=== PATIENT | female | born 1990 | race Two or more races ===

== ENCOUNTER 2024-05-14 07:09 | Inpatient (IN) | payer MEDICAID, OTHER ==
[~2024-05-14] VITALS: Ht 167.6 cm; Wt 70.6 kg
--- NOTE | 2024-05-14 07:41 | ED.PDOC ---
General HPI Comments 33-year-old female presents with a chief complaint of abdominal pain and hematuria x 2 days. Patient states that her abdominal pain is localized to her suprapubic region, radiating into her flanks, and describes as cramping. Patient mentions that she went to urgent care yesterday and they told her she had blood in her urine, and gave her Keflex to take. Patient denies and states that she has an IUD. No other symptoms or modifying factors present at this time. 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 Family History Family History: Reviewed,noncontributory to illness Social History Smoker: Non-Smoker Alcohol: Denies ETOH Use Drugs: Denies Drug Use Lives In: Home Constitutional: denies: chills, diaphoresis, fatigue, fever, malaise, sweats, weakness, others EENTM: denies: blurred vision, double vision, ear bleeding, ear discharge, ear drainage, ear pain, ear ringing, eye pain, eye redness, hearing loss, mouth pain, mouth swelling, nasal discharge, nose bleeding, nose congestion, nose pain, photophobia, tearing, throat pain, throat swelling, voice changes, others Respiratory: denies: cough, hemoptysis, orthopnea, SOB at rest, shortness of breath, SOB with excertion, stridor, wheezing, others Cardiovascular: denies: chest pain, dizzy spells, diaphoresis, Dyspnea on exertion, edema, irregular heart beat, left arm pain, lightheadedness, palpitations, PND, syncope, others Gastrointestinal: reports: abdominal pain; denies: abdomen distended, blood streaked bowels, constipated, diarrhea, dysphagia, difficulty swallowing, hematemesis, melena, nausea, poor appetite, poor fluid intake, rectal bleeding, rectal pain, vomiting, others Genitourinary: reports: hematuria; denies: abnormal vagina bleeding, burning, dyspareunia, dysuria, flank pain, frequency, incontinence, pain, , vagina discharge, urgency, others Neurological: denies: dizziness, fainting, headache, left sided numbness, left sided weakness, numbness, paresthesia, pre-existing deficit, right sided numbness, right sided weakness, seizure, speech problems, tingling, tremors, weakness, others Musculoskeletal: denies: back pain, gout, joint pain, joint swelling, muscle pain, muscle stiffness, neck pain, others Integumetry: denies: bruises, change in color, change in hair/nails, dryness, laceration, lesions, lumps, rash, wounds, others Allergic/Immunocompromised: denies: Difficulty Healing, Frequent Infections, Hives, Itching, others Hematologic/Lymphatic: denies: anemia, blood clots, easy bleeding, easy bruising, swollen glands, others Endocrine: denies: excessive hunger, excessive sweating, excessive thirst, excessive urination, flushing, intolerance to cold, intolerance to heat, unexplained weight gain, unexplained weight loss, others Psychiatric: denies: anxiety, bipolar disorder, depression, hopeless, panic disorder, schizophrenia, sleepless, suicidal, others All Other Systems: Reviewed and Negative Physical Exam General Appearance: Moderate Distress, Normal HEENT: Normal ENT Inspection, Pharynx Normal, TMs Normal Neck: Full Range of Motion, Non-Tender, Normal, Normal Inspection Respiratory: Chest Non-Tender, Lungs Clear, No Accessory Muscle Use, No Respiratory Distress, Normal Breath Sounds Cardiovascular: No Edema, No JVD, No Murmur, No Gallop, Normal Peripheral Pulses, Regular Rate/Rhythm Breast Exam: Deferred Gastrointestinal: No Organomegaly, Non Tender, No Pulsatile Mass, Normal Bowel Sounds, Soft Genitalia: Deferred Pelvic: Deferred Rectal: Deferred Extremities: No calf tenderness, Normal capillary refill, Normal inspection, Normal range of motion, Non-tender, No pedal edema Musculoskeletal : Apperance: Normal Neurologic: Alert, 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 Was a procedure done?: No Differential Diagnosis Kidney stone (Female): Musculoskeletal pain, Urinary obstruction, Urolithiasis X-Ray, Labs, Meds, VS Vital Signs Date Time Temp Pulse Resp B/P (MAP) Pulse Ox O2 Delivery O2 Flow Rate FiO2 05/14/24 07:27 98.0 90 16 112/77 (89) 98 Patient alert. Came in for abdominal pain. Was seen at urgent care yesterday for the same symptom. Vitals stable. Answering all questions. Reviewed her medication. Currently on Keflex. States that she is in excruciating pain. Abdomen is soft. For better patient care she will be admitted. Establish intravenous access. Was given pain medication. Was given Zofran. Explained to the patient. Time of 1ST Reevaluation: 08:02 Reevaluation 1ST: Unchanged Patient Education/Counseling: Diagnosis, Treatment, Prognosis Family Education/Counseling: No Family Present Departure 1 Departure Time of Disposition: 07:43 Impression: Primary Impression: Acute abdominal pain Disposition: 09 ADMITTED INPATIENT Admit to: Med Surg Condition: Guarded Critical Care Note Critical Care Time?: No Stability Stability form required: No Heart Score Heart Score: Heart Score Response (Comments) Value History N/A 0 EKG N/A 0 Age N/A 0 Risk Factors N/A 0 Troponin N/A 0 Total 0 I personally scribed for JAYMIE SOUTH MD ([email or web address]) on 05/14/24 at 07:41. Electronically submitted by Po Noble ([email or web address]). JAYMIE SOUTH MD May 14, 2024 07:41
[2024-05-14 08:19] LABS: Basophils # (auto) 0 10 ^3/uL (0-0.2); Basophils % (auto) 0.1 % (0.0-2.0); Eosinophils # (auto) 0.1 10 ^3/uL (0-0.8); Eosinophils % (auto) 0.8 % (0.0-7.0); Hematocrit 42.3 % (36.0-46.0); Lymphocytes # (auto) 1.9 10 ^3/uL (0.4-5.4); Lymphocytes % (auto) 11.5 % (10.0-50.0); Mean Corpuscular Hemoglobin 31.8 pg (28.0-32.0); Mean Corpuscular Hgb Conc. 33.1 g/dL (32.0-36.0); Monocytes # (auto) 1.2 10 ^3/uL (0-1.3); Monocytes % (auto) 7.7 % (0.0-12.0); Neutrophils % (auto) 79.9 % (37.0-80.0); Nucleated Red Blood Cells % 0.1 %; Platelet Count (auto) 336 10^3/uL (140-450); Red Blood Cells 4.41 10^6/uL (4.0-5.20); White Blood Cell 16.2 10^3/uL (4.4-10.8)
[2024-05-14 08:25] LABS: Chloride 106 mmol/L (98-107); Potassium 3.8 mmol/L (3.5-5.1); Sodium 141 mmol/L (136-145)
[2024-05-14 08:26] LABS: Anion Gap 5 (5-15); Carbon Dioxide 30 mmol/L (20-31)
[2024-05-14 08:27] LABS: Calcium 9.9 mg/dL (8.7-10.4)
[2024-05-14 08:31] LABS: BUN/Creatinine Ratio 10.3 (10.0-20.0); Blood Urea Nitrogen 7 mg/dL (9-23); Glucose 91 mg/dL (74-106)
[2024-05-14 08:38] VITALS: PULSE 78; RESP 18; O2SAT 96
[2024-05-14 09:05] LABS: Urine Bacteria None Seen /hpf (None Seen); Urine Blood 1+ /uL (Negative); Urine Budding Yeast OCCASIONAL /hpf (None Seen); Urine Clarity Clear (Clear); Urine Color Yellow (Yellow); Urine Mucus MODERATE (None Seen); Urine Protein, UAD TRACE (Negative); Urine Urobilinogen Normal (Negative); Urine WBC 1 /hpf (0 - 5); Urine pH 5.5 (5.0-9.0)
[2024-05-14] MEDS ORDERED: NITROGLYCERIN 0.4 MG SL TAB SL PRN (10:15)
[2024-05-14] MEDS: PANTOPRAZOLE 40 MG/10 ML VIAL INJ IV ONE (10:15)
[2024-05-14] MEDS ORDERED: DOCUSATE SOD 100 MG CAP PO PRN (10:15)
[2024-05-14] MEDS ORDERED: MORPHINE SULFATE INJ 2 MG/ml SYRG IV PRN (10:15)
--- NOTE | 2024-05-14 10:16 | DVHHP2 ---
History of Present Illness Reason for Visit: Acute abdominal pain History of Present Illness Patient is a 33-year-old female with past medical history of ovarian cysts who presented to [facility] ED with complaint of acute abdominal pain for a proximally 2 days duration. Patient reports symptoms progressively get worse with hematuria, radiating pain to flank, described as cramping localized to her suprapubic region, getting worse today that prompted this visit. Patient was seen and evaluated in the ED, laboratory data shows elevated WBC 16.2, platelets 336, sodium 141, potassium three eight, BUN seven, creatinine 0.68, glucose 91. Abdomen/pelvis CT results pending. Patient was started on IV antibiotic regimen Rocephin, please see medication orders section in the computer. On my assessment, patient denied chest pain, no headache, no dizziness, no shortness of breath, no abdominal pain at this moment, no , no diarrhea, no nausea, no vomiting, no fever, no chills. Patient was admitted for further evaluation and medical management. Past Medical History Ovarian Cysts Past Surgical History Denies all surgeries Family History Reviewed, noncontributory to the management of this case. Past Social History The patient lives at home, denies smoking, alcohol or illicit drugs abuse. Review of Systems Constitutional: No: Fever, Chills, Sweats, Weakness, Malaise, Other Eyes: No: Pain, Vision change, Conjunctivae inflammation, Eyelid inflammation, Other, Redness ENT: No: Ear pain, Ear discharge, Nose pain, Nose discharge, Nose congestion, Mouth pain, Mouth swelling, Throat pain, Throat swelling, Other Respiratory: No: Cough, Dry, Shortness of breath, SOB with excertion, Wheezing, Hemoptysis, Pleuritic Pain, Sputum, Wheezing, Other Cardiovascular: No: Chest Pain, Palpitations, Orthopnea, Paroxysmal Noc. Dyspnea, Edema, Lt Headedness, Other Gastrointestinal: Abdominal Pain; No: Nausea, Vomiting, Diarrhea, Constipation, Melena, Hematochezia, Other Genitourinary: No Dysuria, No Frequency, No Incontinence; Hematuria; No Retention, No Other Musculoskeletal: No: other, neck pain, shoulder pain, arm pain, back pain, hand pain, leg pain, foot pain Skin: No: Rash, Lesions, Jaundice, Bruising, Other Neurological: No: Weakness, Numbness, Incoordination, Change in speech, Confusion, Seizures, Other Allergies: Coded Allergies: NO KNOWN ALLERGIES (Unverified , 05/14/24) Exam Vital Signs Vital Signs Date Time Temp Pulse Resp B/P (MAP) Pulse Ox O2 Delivery O2 Flow Rate FiO2 05/14/24 08:38 98.0 78 18 138/96 (110) 96 98.0 05/14/24 08:38 Room Air* 0 21 General Appearance: Alert, Oriented X3, Cooperative, No acute distress HEENT: Atraumatic, PERRLA, EOMI, Mucous membr. moist/pink Respiratory: Clear to auscultation, Normal air movement Cardiovascular: Regular rate, Normal S1, Normal S2, No murmurs Abdominal: Normal bowel sounds, Soft, No hepatospenomegaly, No masses, Other (Reports tenderness) Extremities: No clubbing, No cyanosis, No edema, Normal pulses, No tenderness/swelling Skin: No rashes, No breakdown, No significant lesion Neuro: Normal gait, Normal speech, Strength at 5/5 X4 ext, Normal tone, Sensation intact, Cranial nerves 3-12 NL, Reflexes 2+ Psych/Mental Status: Mental status NL, Mood NL Labs/Xrays Labs Test 05/14/24 10:01 05/14/24 07:52 Range/Units Urine Color Yellow Yellow Urine Clarity Clear Clear Urine pH 5.5 5.0-9.0 Urine Specific [place] 1.030 1.001-1.035 Urine Protein Trace H Negative Urine Ketones Negative Negative Urine Blood 1+ H Negative /uL Urine Nitrite Negative Negative Urine Bilirubin Negative Negative Urine Urobilinogen Normal Negative mg/dL Urine Leukocyte Esterase Negative Negative /uL Urine RBC 3 0 - 4 /hpf Urine WBC 1 0 - 5 /hpf Urine Squamous Epithelial Cells Few <5 /hpf Urine Bacteria None seen None Seen /hpf Urine Mucus Moderate None Seen Urine Yeast (Budding) Occasional None Seen /hpf Urine Glucose Normal Normal mg/dL White Blood Count 16.2 H 4.4-10.8 10^3/uL Red Blood Count 4.41 4.0-5.20 10^6/uL Hemoglobin 14.0 12.2-16.2 g/dL Hematocrit 42.3 36.0-46.0 % Mean Corpuscular Volume 96.0 80.0-100.0 fL Mean Corpuscular Hemoglobin 31.8 28.0-32.0 pg Mean Corpuscular Hemoglobin Concent 33.1 32.0-36.0 g/dL Red Cell Distribution Width 13.0 11.8-14.3 % Platelet Count 336 140-450 10^3/uL Mean Platelet Volume 7.5 6.9-10.8 fL Neutrophils (%) (Auto) 79.9 37.0-80.0 % Lymphocytes (%) (Auto) 11.5 10.0-50.0 % Monocytes (%) (Auto) 7.7 0.0-12.0 % Eosinophils (%) (Auto) 0.8 0.0-7.0 % Basophils (%) (Auto) 0.1 0.0-2.0 % Neutrophils # (Auto) 13.0 H 1.6-8.6 10 ^3/uL Lymphocytes # (Auto) 1.9 0.4-5.4 10 ^3/uL Monocytes # (Auto) 1.2 0-1.3 10 ^3/uL Eosinophils # (Auto) 0.1 0-0.8 10 ^3/uL Basophils # (Auto) 0 0-0.2 10 ^3/uL Nucleated Red Blood Cells 0.1 % Sodium Level 141 136-145 mmol/L Potassium Level 3.8 3.5-5.1 mmol/L Chloride Level 106 98-107 mmol/L Carbon Dioxide Level 30 20-31 mmol/L Anion Gap 5 5-15 Blood Urea Nitrogen 7 L 9-23 mg/dL Creatinine 0.68 0.550-1.02 mg/dL Glomerular Filtration Rate Calc 119 >90 mL/min BUN/Creatinine Ratio 10.3 10.0-20.0 Serum Glucose 91 74-106 mg/dL Calcium Level 9.9 8.7-10.4 mg/dL Abdomen/pelvis CT results pending Assessment/Plan Assessment/Plan Acute abdominal pain Hematuria Leukocytosis, unspecified Plan 1. Admit to med surge unit 2. Breathing treatment 3. Pain control management 4. IV antibiotic management 5. Management of fluids and electrolytes 6. Consultation for hospitalist 7. Diagnostic test abdomen/pelvis CT 8. DVT prophylaxis-on SCDs 9. Repeat labs CBC, CMP in a.m. 10. Continue with current medical management 11. Treatment plan discussed with patient and RN. Patient verbalized understanding. Plan discussed with: Patient, Other (RN) My Orders Orders - CLAUDETTE CARMICHAEL DNP Procedure Category Date Status Time Ceftriaxone Ivpb PHA 05/15/24 Verified Rocephin 09:00 Ceftriaxone Ivpb PHA 05/14/24 Verified Rocephin 10:15 Pantoprazole PHA 05/15/24 Verified (Protonix) 10:00 Pantoprazole PHA 05/14/24 Verified (Protonix) 10:15 Admit ADMIT 05/14/24 Verified 10:13 Allergies CORAL 05/14/24 Verified 10:13 Code Status CODE 05/14/24 Verified 10:13 Sodium Chloride Lock PHA 05/14/24 Verified (Saline Lock Ns) 14:00 Oxygen Per Hour RT 05/14/24 Verified 10:13 Hydrocodone-Acet PHA 05/14/24 Verified 5/325mg Tab (Josephine 10:15 Ondansetron Hcl PHA 05/14/24 Verified (Zofran) 10:15 Docusate Sodium PHA 05/14/24 Verified Capsule (Colace 10:15 Problem List: (1) Acute abdominal pain (2) Hematuria (3) Leukocytosis, unspecified Date of Service: May 14, 2024 Billing Provider: CLAUDETTE CARMICHAEL DNP Common Visit Codes: [id number] INP/OBS CARE (HIGH) CLAUDETTE CARMICHAEL DNP May 14, 2024 10:16
[2024-05-14] MEDS: SODIUM CHLOR 0.9% PF (SALINE LOCK) 10ML VIAL/SYR IV SCH (11:20)
[2024-05-14] MEDS: cefTRIAXone 1GM/50ML D5W 50 ML IV ONE (11:37)
--- NOTE | 2024-05-14 11:49 | DVH ---
CT ABDOMEN AND PELVIS WITHOUT CONTRAST CLINICAL HISTORY: stone TECHNIQUE: Multidetector CT of the abdomen was performed from lung bases to pubic symphysis. Imaging was performed without IV contrast. Axial, coronal and sagittal multiplanar reformats were obtained fr om the axial data set by the technologist. Radiation optimization: All CT scans at this facility use at least one of these dose optimization rosalinda hniques: automated exposure control mA and/or kV adjustment per patient size (includes targeted exam s where dose is matched to clinical indication) or iterative reconstruction. Radiation Dose Information: CT Dose: CTDI volume is 8 mGy. Dose-length product is 426 mGy*cm Comparison: None FINDINGS: [Findings] Evaluation of the abdominal viscera is limited without intravenous contrast. The liver, gallbladder, pancreas, kidneys, adrenal glands, and spleen appear within normal limits. There is no gross evidence of abdominal lymphadenopathy. There is no free fluid or free air. The stomach grossly appears unremarkable. The small and large bowel loops demonstrate normal caliber and appear within normal limits. The abdominal aorta and IVC appear within normal limits. There is an IUD within the uterus. There is a 3.1 x 4.1 cm cystic structure in the right adnexa likel y an ovarian cyst. The bladder is poorly filled limiting evaluation. There is no free fluid collectio n in the pelvis. Lung bases are clear. There is no acute osseous abnormality. IMPRESSION: 1. There is no acute process in the abdomen and pelvis.. 2. 3.1 x 4.1 cm cystic structure in the right adnexa likely an ovarian cyst. Further evaluation with dedicated pelvic ultrasound is recommended. 3. IUD within the uterus. HS:Y
[2024-05-14] MEDS: MORPHINE SULFATE INJ 2 MG/ml SYRG IV PRN (12:16)
[2024-05-14 17:12] VITALS: BP 100/54; PULSE 74; RESP 16; TEMP 98; O2SAT 98
[2024-05-14 18:22] VITALS: BP 104/44; PULSE 62; RESP 16; TEMP 98.1; O2SAT 97
[2024-05-14] MEDS: HYDROcodone-ACET 5/325MG TAB PO PRN (18:51)
[2024-05-14] MEDS ORDERED: ZOFR4T PO (19:20)
[2024-05-14] MEDS ORDERED: CEPH500C PO (19:20)
[2024-05-14 20:00] VITALS: PULSE 59; RESP 17; O2SAT 97
[2024-05-14] MEDS: ONDANSETRON HCL 4 MG/2 ML VIAL IV PRN (21:00)
[2024-05-14 22:00] VITALS: BP 100/56; PULSE 59; RESP 17; TEMP 97.8; O2SAT 97
[2024-05-15] VITALS (9 sets, daily range): BP systolic 100–119; BP diastolic 49–68; PULSE 54–72; RESP 16–17; TEMP 97.4–98.6; O2SAT 95–100
[2024-05-15] MEDS: ACETAMINOPHEN 325 MG TAB PO PRN (06:11)
[2024-05-15] MEDS: PANTOPRAZOLE 40 MG/10 ML VIAL INJ IV SCH (09:58)
[2024-05-15] MEDS: cefTRIAXone 1GM/50ML D5W 50 ML IV SCH (10:06)
[2024-05-15 10:37] LABS: Basophils # (auto) 0 10 ^3/uL (0-0.2); Basophils % (auto) 0.5 % (0.0-2.0); Eosinophils # (auto) 0.1 10 ^3/uL (0-0.8); Eosinophils % (auto) 1.6 % (0.0-7.0); Hematocrit 40.2 % (36.0-46.0); Hemoglobin 13.5 g/dL (12.2-16.2); Lymphocytes # (auto) 2.1 10 ^3/uL (0.4-5.4); Lymphocytes % (auto) 24.4 % (10.0-50.0); Mean Corpuscular Hgb Conc. 33.5 g/dL (32.0-36.0); Mean Corpuscular Volume 95.5 fL (80.0-100.0); Monocytes # (auto) 0.7 10 ^3/uL (0-1.3); Monocytes % (auto) 8.3 % (0.0-12.0); Neutrophils # (auto) 5.6 10 ^3/uL (1.6-8.6); Neutrophils % (auto) 65.2 % (37.0-80.0); Platelet Count (auto) 321 10^3/uL (140-450); Red Blood Cells 4.21 10^6/uL (4.0-5.20); Red Cell Distribution Width 12.9 % (11.8-14.3); White Blood Cell 8.5 10^3/uL (4.4-10.8)
[2024-05-15 10:53] LABS: Alanine Aminotransferase 32 U/L (7-40); Albumin 4.4 g/dL (3.2-4.8); Alkaline Phosphatase 95 U/L (46-116); Anion Gap 4 (5-15); Aspartate Aminotransferase 18 U/L (13-40); BUN/Creatinine Ratio 7.1 (10.0-20.0); Blood Urea Nitrogen 5 mg/dL (9-23); Calcium 9.2 mg/dL (8.7-10.4); Carbon Dioxide 28 mmol/L (20-31); Chloride 107 mmol/L (98-107); Glucose 99 mg/dL (74-106); Potassium 3.9 mmol/L (3.5-5.1); Sodium 139 mmol/L (136-145)
[2024-05-15 10:54] LABS: Bilirubin, Total 0.4 mg/dL (0.2-1.0); Total Protein 7.6 g/dL (5.7-8.2)
--- NOTE | 2024-05-15 13:36 | DVHINCON2 ---
Date of service: May 15, 2024 Reason for Consultation Acute Abdominal Pain Right Ovarian Cyst History of Present Illness HPI 33y Ab2 Living children x 3. LMP 04/11/24. Contraception= MIRENA IUD since 2021 Patient admitted with leukocytosis, hematuria, and right flank pain. Denies fever. Pain in abdomen and lower back x 2 days. Denies N/V or diarrhea History of ovarian cysts, s/p laparoscopic ovarian cystectomy x 2 in 2016 and 2020 (pathology unknown, poor historian) Denies any history of endometriosis Has irreg and very light periods due to MIRENA use x 2 years. 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 History of gonorrhea [address] Abd/Pelvis shows no acute process Pelvic US shows right complex, septated 5cm ROV cyst, normal doppler flow to both ovaries. Home Meds Reported Medications Ondansetron Odt 4MG Tab (ZOFRAN PO) 4 Mg Tb, 4 MG PO, TAB ODT TAB-DISSOLVE IN MOUTH, THEN SWALLOW 05/14/24 Cephalexin Monohydrate (Cephalexin) 500 Mg Cap, 500 MG PO Q6HR, MG 05/14/24 Past Medical History Cardiac: No pertinent Hx Pulmonary: No pertinent Hx Central Nervous System: No pertinent Hx GI: No pertinent Hx Hemotology/Oncology: No pertinent Hx Hepatobiliary: No pertinent Hx Psychiatric: No pertinent Hx Musculoskeletal: No pertinent Hx Rheumotologic: No pertinent Hx Infectious Disease: No peritnent Hx ENT: No pertinent Hx Renal/: No pertinent Hx Endocrine: No pertinent Hx Dermatology: No pertinent Hx Past Surgical History: Other (Laparoscopy) Patient Family History: Diabetes mellitus G8 MOTHER, Onset:Unknown G8 FATHER, Onset:Unknown FHx: heart failure G8 MOTHER, Onset:Unknown Smoker: No Hx (Negative) Alocohol: None Drugs: None Lives with: With family Review of Systems Constitutional: No symptom reported Ears, Nose, & Throat: No symptom reported Eyes: No symptom reported Pulmonary/Respiratory: No symptom reported Cardiovascular: No symptom reported Gastrointestinal: Abdominal Pain Genitourinary: Hematuria Musculoskeletal: No symptom reported Skin: No symptom reported Psychiatric: No symptom reported Endocrine: No symptom reported Hemotologic/Lymphatic: No symptom reported H&P Exam Vital Signs Vital Signs Date Time Temp Pulse Resp B/P (MAP) Pulse Ox O2 Delivery O2 Flow Rate FiO2 05/15/24 13:15 98.1 57 17 105/58 (74) 100 98.1 05/15/24 08:20 Room Air* 0 21 General Appeara: Well developed, Well nourished, Normal Appearance, Other (NO distress) Head Exam: Normal inspection Neck Exam: Normal inspection Eye Exam: bilateral eye PERRL Nasal Exam: Normal inspection Mouth: Normal Inspection Pulmonary/Respiratory: Normal inspection, Normal breath sounds, Lungs clear Cardiovascular/Chest: Normal inspection Abdominal Exam: Normal bowel sounds, Soft, No tenderness, No hepatospenomegaly, No masses Rectal Exam: Deferred Pelvic Exam: Not done Eye contact/ Speech: Cooperative, Good eye contact Thoughts/Psych: Normal thought pattern Labs/Xrays PATIENT: HATTIE BALEST: [id number] UNIT: [id number] : 1990 LOC: [facility] ROOM / BED: [address] [place] [address] AGE / SEX: 33 / F ADM STATUS: ADM IN SERVICE 1307 ORDERING PHYSICIAN: MANOJ KEYS DO PROCEDURE(s): PELUS - PELVIC REASON: abd pain ORDER NUMBER(s): [id number], ACCESSION NUMBER(s): [id number] INDICATION: Pain TECHNIQUE: Multiple real-time grayscale transabdominal and transvaginal sonographic images along with color and duplex Doppler of the uterus and ovaries were obtained. COMPARISON: None FINDINGS: The uterus measures 7.9 x 4.3 x 3.7 cm. The endometrial stripe measures 0.3 cm. Intrauterine device is visualized in the endometrium. The right ovary measures 5.2 x 4.9 x 3.5 cm. There is a right ovarian hemorrhagic cyst measuring 4.9 cm. The left ovary measures 2.5 x 1.8 x 1.7 cm. Subsequent color and duplex Doppler interrogation of the ovaries demonstrated symmetric vascular flow to both ovaries, though this does not exclude the possibility of torsion due to the dual blood supply. IMPRESSION: Right ovarian hemorrhagic cyst measuring 4.9 cm. Recommend follow-up pelvic ultrasound in 6 weeks. Labs Test 05/15/24 10:05 05/14/24 10:01 Range/Units White Blood Count 8.5 # 4.4-10.8 10^3/uL Red Blood Count 4.21 4.0-5.20 10^6/uL Hemoglobin 13.5 12.2-16.2 g/dL Hematocrit 40.2 36.0-46.0 % Mean Corpuscular Volume 95.5 80.0-100.0 fL Mean Corpuscular Hemoglobin 32.0 28.0-32.0 pg Mean Corpuscular Hemoglobin Concent 33.5 32.0-36.0 g/dL Red Cell Distribution Width 12.9 11.8-14.3 % Platelet Count 321 140-450 10^3/uL Mean Platelet Volume 7.3 6.9-10.8 fL Neutrophils (%) (Auto) 65.2 37.0-80.0 % Lymphocytes (%) (Auto) 24.4 10.0-50.0 % Monocytes (%) (Auto) 8.3 0.0-12.0 % Eosinophils (%) (Auto) 1.6 0.0-7.0 % Basophils (%) (Auto) 0.5 0.0-2.0 % Neutrophils # (Auto) 5.6 1.6-8.6 10 ^3/uL Lymphocytes # (Auto) 2.1 0.4-5.4 10 ^3/uL Monocytes # (Auto) 0.7 0-1.3 10 ^3/uL Eosinophils # (Auto) 0.1 0-0.8 10 ^3/uL Basophils # (Auto) 0 0-0.2 10 ^3/uL Nucleated Red Blood Cells 0.0 % Sodium Level 139 136-145 mmol/L Potassium Level 3.9 3.5-5.1 mmol/L Chloride Level 107 98-107 mmol/L Carbon Dioxide Level 28 20-31 mmol/L Anion Gap 4 L 5-15 Blood Urea Nitrogen 5 L 9-23 mg/dL Creatinine 0.70 0.550-1.02 mg/dL Glomerular Filtration Rate Calc 118 >90 mL/min BUN/Creatinine Ratio 7.1 L 10.0-20.0 Serum Glucose 99 74-106 mg/dL Calcium Level 9.2 8.7-10.4 mg/dL Total Bilirubin 0.4 0.2-1.0 mg/dL Aspartate Amino Transferase (AST) 18 13-40 U/L Alanine Aminotransferase (ALT) 32 7-40 U/L Alkaline Phosphatase 95 46-116 U/L Total Protein 7.6 5.7-8.2 g/dL Albumin 4.4 3.2-4.8 g/dL Urine Color Yellow Yellow Urine Clarity Clear Clear Urine pH 5.5 5.0-9.0 Urine Specific [place] 1.030 1.001-1.035 Urine Protein Trace H Negative Urine Ketones Negative Negative Urine Blood 1+ H Negative /uL Urine Nitrite Negative Negative Urine Bilirubin Negative Negative Urine Urobilinogen Normal Negative mg/dL Urine Leukocyte Esterase Negative Negative /uL Urine RBC 3 0 - 4 /hpf Urine WBC 1 0 - 5 /hpf Urine Squamous Epithelial Cells Few <5 /hpf Urine Bacteria None seen None Seen /hpf Urine Mucus Moderate None Seen Urine Yeast (Budding) Occasional None Seen /hpf Urine Glucose Normal Normal mg/dL Microbiology Date/Time Source Procedure Growth Status 05/14/24 12:18 Blood Blood Culture - Preliminary NO GROWTH AFTER 24 HOURS OF INCUBATION. Resulted Assessment/Plan Admitting Diagnosis: Acute abdominal pain, etiology to be determined Right ovarian complex cyst, 5cm (likely hemorrhagic cyst, stable) Presence of IUD (Mirena) Hx of Abnormal PAP and HPV+ Plan Patient has a benign, non acute abdomen. No evidence of ovarian torsion or rupture NO intervention for surgery indicated at this time for a functional, hemorrhagic ovarian cyst (benign) Would recommend outpatient [employer] follow up for pelvic exam and repeat Pelvic US in 4-6 weeks Reconsult if necessary or if pain control inadequate, would consider laparoscopy with cystectomy and/or oophorectomy if not improving with conservative measures. [employer] WILL SIGN off Plan discussed with: Patient Date of Service: May 15, 2024 Billing Provider: MANOJ KEYS DO Common Visit Codes: CONSULT ONLY Consultation Codes: [id number] CONSULT <60MIN MANOJ KEYS DO May 15, 2024 13:36
--- NOTE | 2024-05-15 14:10 | DVH ---
INDICATION: Pain TECHNIQUE: Multiple real-time grayscale transabdominal and transvaginal sonographic images along with color and duplex Doppler of the uterus and ovaries were obtained. COMPARISON: None FINDINGS: The uterus measures 7.9 x 4.3 x 3.7 cm. The endometrial stripe measures 0.3 cm. Intrauterin e device is visualized in the endometrium. The right ovary measures 5.2 x 4.9 x 3.5 cm. There is a right ovarian hemorrhagic cyst measuring 4.9 cm. The left ovary measures 2.5 x 1.8 x 1.7 cm. Subsequent color and duplex Doppler interrogation of the ovaries demonstrated symmetric vascular flow to both ovaries, though this does not exclude the possibility of torsion due to the dual blood suppl y. IMPRESSION: Right ovarian hemorrhagic cyst measuring 4.9 cm. Recommend follow-up pelvic ultrasound in 6 weeks.
[2024-05-15] MEDS: ACETAMINOPHEN 325 MG TAB PO SCH (14:14)
[2024-05-15] MEDS: IBUPROFEN 400 MG TAB PO SCH (14:14)
[2024-05-15 14:58] LABS: Urine Bacteria None Seen /hpf (None Seen)
[2024-05-15 15:08] LABS: Urine Blood Negative /uL (Negative); Urine Clarity Clear (Clear); Urine Color Light-Yellow (Yellow); Urine Protein, UAD Negative (Negative); Urine Specific Gravity 1.012 (1.001-1.035); Urine Urobilinogen Normal (Negative); Urine WBC <1 /hpf (0 - 5)
--- NOTE | 2024-05-15 16:08 | DVHPN2 ---
Subjective 33-year-old female with history of ovarian cyst status post laparoscopy presented with odynophagia for the past 3 days. Also complained of abdominal and back pain for the past 2-4 months. Also found to have hematuria. Patient is seen by me today during rounds We will consult electrical tester battery, repeat UA. Patient reported having pain during swallowing, however are able to swallow solid and liquid. Reported this started for the past 4 days with no cough, no phlegm production, and only sore throat and pain on swallowing. Reviewed: H&P Changes from previous H/P or p: No Changes Eyes: No Pain, No Vision change, No Conjunctivae inflammation, No Eyelid inflammation, No Other, No Redness ENT: No Ear pain, No Ear discharge, No Nose pain, No Nose discharge, No Nose congestion, No Mouth pain, No Mouth swelling, No Throat pain, No Throat swelling, No Other Cardiovascular: No Chest Pain, No Palpitations, No Orthopnea, No Paroxysmal Noc. Dyspnea, No Edema, No Lt Headedness, No Other Respiratory: No Cough, No Dry, No Shortness of breath, No SOB with excertion, No Wheezing, No Hemoptysis, No Pleuritic Pain, No Sputum, No Other Gastrointestinal: No Nausea, No Vomiting; Abdominal Pain; No Diarrhea, No Constipation, No Melena, No Hematochezia, No Other Genitourinary: No Dysuria, No Frequency, No Incontinence; Hematuria; No Retention, No Other Musculoskeletal: No other, No neck pain, No shoulder pain, No arm pain, No back pain, No hand pain, No leg pain, No foot pain Skin: No Rash, No Lesions, No Jaundice, No Bruising, No Other Objective Vitals Vital Signs Date Time Temp Pulse Resp B/P (MAP) Pulse Ox O2 Delivery O2 Flow Rate FiO2 05/15/24 13:15 98.1 57 17 105/58 (74) 100 98.1 05/15/24 08:20 Room Air* 0 21 Intake/Output Intake and Output 05/15/24 07:00 Intake Total 325 ml Balance 325 ml Intake Oral 325 ml # Voids 2 Exam Alert, oriented x3 PERRLA No JVD Enlarged tonsil, slight erythema, slightly coated tongue, fair oral hygiene Clear breath sounds bilaterally S1-S2 regular rate and rhythm no murmur Abdomen slight suprapubic tenderness, back pain, no flank tenderness Equal strength bilaterally on upper and lower extremities No lower extremity edema Medications Current Medications Medications Dose Ordered Sig/Jaime Route Start Time Stop Time Status Last Admin Dose Admin Ceftriaxone Sodium 50 ml @ 100 mls/hr DAILY@09 IV 05/15/24 09:00 05/15/24 10:06 100 MLS/HR Sodium Chloride 10 ml Q8HR IV 05/14/24 14:00 05/15/24 14:14 10 ML Al Hydrox/Mg Hydrox/Simethicone 5 ml QID MT 05/15/24 18:00 Acetaminophen 650 mg Q8HR PO 05/15/24 14:00 05/15/24 14:14 650 MG Ibuprofen 400 mg Q8HR PO 05/15/24 14:00 05/15/24 14:14 400 MG Laboratory Results Laboratory Tests 05/15/24 10:05 Chemistry Test 05/15/24 10:05 Albumin 4.4 g/dL (3.2-4.8) Calcium Level 9.2 mg/dL (8.7-10.4) Total Protein 7.6 g/dL (5.7-8.2) LFT Test 05/15/24 10:05 Alanine Aminotransferase (ALT) 32 U/L (7-40) Alkaline Phosphatase 95 U/L (46-116) Aspartate Amino Transferase (AST) 18 U/L (13-40) Total Bilirubin 0.4 mg/dL (0.2-1.0) Urinalysis Test 05/14/24 10:01 05/15/24 14:57 Urine Mucus Moderate (None Seen) Urine Yeast (Budding) Occasional /hpf (None Urine Color Light-yellow (Yellow) Urine Clarity Clear (Clear) Urine pH 7.0 (5.0-9.0) Urine Specific [place] 1.012 (1.001-1.035) Urine Protein Negative (Negative) Urine Ketones Negative (Negative) Urine Blood Negative /uL (Negative) Urine Nitrite Negative (Negative) Urine Bilirubin Negative (Negative) Urine Urobilinogen Normal mg/dL (Negative) Urine Leukocyte Esterase Negative /uL (Negative) Urine RBC 1 /hpf (0 - 4) Urine WBC <1 /hpf (0 - 5) Urine Squamous Epithelial Cells Few /hpf (<5) Urine Bacteria None seen /hpf (None Seen) Urine Glucose Normal mg/dL (Normal) Microbiology Microbiology Date/Time Source Procedure Growth Status 05/14/24 12:18 Blood Blood Culture - Preliminary NO GROWTH AFTER 24 HOURS OF INCUBATION. Resulted Labs and/or images reviewed: Labs reviewed by me, Image(s) reviewed by me Assessment/Plan Assessment/Plan Ovarian cyst, unlikely torsion Questionable UTI Hematuria, resolving Odynophagia, likely viral URI Leukocytosis, resolved Civil Process Server consult Pelvic ultrasound Repeat UA Magic mouthwash Challenge for oral intake Patient was started on ceftriaxone, we will continue for now Diet mechanical soft DVT prophylaxis ambulatory Plan discussed with: Patient My Orders Orders - JAMILA LY MD Procedure Category Date Status Time Mechanical Soft Diet DIET 05/15/24 Transmitted Lunch Magic Mouthwash PHA 05/15/24 In Process Suspension (Majic 18:00 * Forging Machine Operator Consultation CONS 05/15/24 Transmitted 12:35 Acetaminophen Tablet PHA 05/15/24 In Process (Tylenol Tablet) 14:00 Ibuprofen Tablet PHA 05/15/24 In Process (Motrin Tablet) 14:00 Transvaginal Us Non Ob US 05/15/24 Taken Date of Service: May 15, 2024 Billing Provider: JAMILA LY MD Common Visit Codes: [id number] INP/OBS CARE(HIGH) JAMILA LY MD May 15, 2024 16:08
[2024-05-15] MEDS: MAGIC MOUTHWASH 55 ML SUSP MT SCH (18:00)
[2024-05-16 09:18] LABS: Hepatitis B Surface Antigen Negative (Negative)
[2024-05-16 09:42] LABS: Hepatitis C Antibody Negative (Negative)
[2024-05-16] MEDS ORDERED: FAMOTIDINE 20 MG TAB PO SCH (10:00)
== END 2024-05-15 23:07 | disposition left against medical advice (07) | DRG 532 ==
LOC: ER 07:09 → OVERFLOW 10:16 → WEST WING 18:24
PROVIDERS: ADMIT Nurse Practitioner Family; ATTEND Student in an Organized Health Care Education/Training Program
DX: N83.291 Other ovarian cyst, right side (principal); D72.829 Elevated white blood cell count, unspecified; R31.9 Hematuria, unspecified; M54.9 Dorsalgia, unspecified; N39.0 Urinary tract infection, site not specified; R13.10 Dysphagia, unspecified; J06.9 Acute upper respiratory infection, unspecified; Z97.5 Presence of (intrauterine) contraceptive device; Z82.49 Family history of ischemic heart disease and other diseases of the circulatory system; Z87.891 Personal history of nicotine dependence; Z83.3 Family history of diabetes mellitus
CPT/HCPCS: 36415; 74176; 76830; 76856; 80048; 80053; 81001; 85025; 86803; 87040; 87340; 96361; 96374; 96375; G0378; J2405; J2470

== ENCOUNTER 2025-01-18 21:40 | Inpatient (IN) | payer MEDICAID ==
[~2025-01-18] VITALS: Ht 167.6 cm; Wt 68.0 kg
[~2025-01-18 21:40] MED LIST: CEPH500C PO; ZOFR4T PO
--- NOTE | 2025-01-18 22:45 | ED.PDOC ---
GI ASSESSMENT HPI Comments 34-year-old female who came to ER for nausea and vomiting. Patient states she has been having intermittent episodes of nausea and vomiting for the past few months. For the past 3 days noted worsening of nausea and vomiting, with the episodes of blood-tinged vomitus. States she could not keep anything in. She denies any abdominal pain. Denies any urinary symptoms. Patient unsure if she is Chief Complaint: Nausea/Vomiting Time Seen by MD: 22:43 Reviewed Notes: Nurses Notes Allergies: Coded Allergies: NO KNOWN ALLERGIES (Unverified , 05/14/24) Home Meds Reported Medications Ondansetron Odt 4MG Tab (ZOFRAN PO) 4 Mg Tb, 4 MG PO, TAB ODT TAB-DISSOLVE IN MOUTH, THEN SWALLOW 05/14/24 Cephalexin Monohydrate (Cephalexin) 500 Mg Cap, 500 MG PO Q6HR, MG 05/14/24 Information Source: Patient Mode of Arrival: Ambulatory Timing: Days Duration: Since onset Prehospital treatment: None Vomitus: Watery, Streaking Blood Stool: Normal Recent: None Recent Hx of: None Pain Location: None Associated sign and symptoms: Nausea, Vomiting Review of Systems REVIEW OF SYSTEMS: No fever, no chills, or fatigue HEENT: No sore throat, no earache, no congestion, no neck pain. Cardiac: No chest pain. No palpitations. Lungs: No shortness of breath, no cough. GI: (+) nausea, (+) vomiting, no diarrhea, no constipation, no abdominal pain : No dysuria, frequency, or urgency. No hematuria. Musculoskeletal: No joint pain , no joint swelling, no extremity edema. Skin: No rash, no itching. Neuro: No headache, no dizziness, no weakness Vital Signs Vital Signs Date Time Temp Pulse Resp B/P (MAP) Pulse Ox O2 Delivery O2 Flow Rate FiO2 01/19/25 01:09 86 16 99 Room Air* 0 21 01/19/25 01:09 121/74 (90) 01/18/25 22:03 98.0 98.0 Physical Exam PHYSICAL EXAM: General: Awake, alert and oriented. No acute distress. Skin: Skin in warm, dry and intact without rashes or lesions. HEENT: The head is normocephalic and atraumatic. Conjunctivae are clear without exudates or hemorrhage. Sclera is non-icteric. Neck: Normal range of motion. No JVD. Cardiac: Regular rate Abdominal: Mild suprapubic tenderness, no CVA tenderness, no guarding or rigidity Respiratory: No signs of respiratory distress. No Stridor. Extremities: Upper and lower extremities are atraumatic in appearance without deformity. Neurological: The patient is awake, alert and oriented to person, place, and time with normal speech. Speech is clear. There is no facial asymmetry. Normal gait Psychiatric: Appropriate mood and affect. Good judgement and insight. 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 Was a procedure done?: No GI differential Dx Differential Diagnosis: Diverticular disease, Gastritis/PUD, Gastroenteritis, Ovarian cyst/torsion, Pancreatitis, UTI, Urolithiasis, Dehydration X-Ray, Labs, Meds, VS Vital Signs Date Time Temp Pulse Resp B/P (MAP) Pulse Ox O2 Delivery O2 Flow Rate FiO2 01/19/25 01:09 86 16 99 Room Air* 0 21 01/19/25 01:09 78 16 121/74 (90) 99 01/18/25 22:03 98.0 92 16 133/79 (97) 97 98.0 Lab Test 01/19/25 05:12 01/18/25 23:03 01/18/25 22:00 Range/Units White Blood Count 10.3 10.9 H 4.4-10.8 10^3/uL Red Blood Count 4.37 4.45 4.0-5.20 10^6/uL Hemoglobin 14.1 14.6 12.2-16.2 g/dL Hematocrit 41.4 42.3 36.0-46.0 % Mean Corpuscular Volume 94.8 95.2 80.0-100.0 fL Mean Corpuscular Hemoglobin 32.4 H 32.7 H 28.0-32.0 pg Mean Corpuscular Hemoglobin Concent 34.1 34.4 32.0-36.0 g/dL Red Cell Distribution Width 12.9 13.3 11.8-14.3 % Platelet Count 317 322 140-450 10^3/uL Mean Platelet Volume 7.6 7.3 6.9-10.8 fL Neutrophils (%) (Auto) 61.6 66.4 37.0-80.0 % Lymphocytes (%) (Auto) 27.5 22.9 10.0-50.0 % Monocytes (%) (Auto) 8.9 9.0 0.0-12.0 % Eosinophils (%) (Auto) 1.5 1.2 0.0-7.0 % Basophils (%) (Auto) 0.5 0.5 0.0-2.0 % Neutrophils # (Auto) 6.3 7.2 1.6-8.6 10 ^3/uL Lymphocytes # (Auto) 2.8 2.5 0.4-5.4 10 ^3/uL Monocytes # (Auto) 0.9 1.0 0-1.3 10 ^3/uL Eosinophils # (Auto) 0.2 0.1 0-0.8 10 ^3/uL Basophils # (Auto) 0 0.1 0-0.2 10 ^3/uL Nucleated Red Blood Cells 0.0 0.0 % Sodium Level 140 140 136-145 mmol/L Potassium Level 3.5 3.6 3.5-5.1 mmol/L Chloride Level 104 106 98-107 mmol/L Carbon Dioxide Level 27 26 20-31 mmol/L Anion Gap 9 8 5-15 Blood Urea Nitrogen 9 11 9-23 mg/dL Creatinine 0.76 0.65 0.550-1.02 mg/dL Glomerular Filtration Rate Calc 106 119 >90 mL/min BUN/Creatinine Ratio 11.8 16.9 10.0-20.0 Serum Glucose 86 98 74-106 mg/dL Calcium Level 10.0 9.3 8.7-10.4 mg/dL Lactic Acid Level 1.0 0.4-2.0 mmol/L Total Bilirubin 0.4 0.2-1.0 mg/dL Aspartate Amino Transferase (AST) 20 13-40 U/L Alanine Aminotransferase (ALT) 25 7-40 U/L Alkaline Phosphatase 108 46-116 U/L Total Protein 7.4 5.7-8.2 g/dL Albumin 4.7 3.2-4.8 g/dL Urine Color Yellow Yellow Urine Clarity Turbid H Clear Urine pH 5.5 5.0-9.0 Urine Specific [place] 1.033 1.001-1.035 Urine Protein Trace H Negative Urine Ketones Trace Negative Urine Blood Trace H Negative /uL Urine Nitrite Negative Negative Urine Bilirubin Negative Negative Urine Urobilinogen Normal Negative mg/dL Urine Leukocyte Esterase Negative Negative /uL Urine RBC 1 0 - 4 /hpf Urine Microscopic WBC 3 0-5 /HPF Urine Squamous Epithelial Cells Mod <5 /hpf Urine Calcium Oxalate Crystals Many None Seen Urine Bacteria None seen None Seen /hpf Urine Mucus Few None Seen Urine Glucose Normal Normal mg/dL Urine Test Negative Negative Current Medications Medications (Trade) Dose Ordered Sig/Jaime Route Start Time Stop Time Status Last Admin Pantoprazole Sodium (Protonix) 40 mg ONCE ONCE IV 01/18/25 23:00 01/18/25 23:01 DC 01/19/25 01:08 Ondansetron HCl (Zofran) 4 mg ONCE ONCE IV 01/18/25 23:00 01/18/25 23:01 DC 01/19/25 01:08 Ondansetron HCl (Zofran) 4 mg Q4HP PRN IV 01/19/25 04:30 01/19/25 14:41 Exam: CT CT AB PEL WITH IV CON ONLY History: Suspected upper GI bleed, abdominal pain Comparison Study: None TECHNIQUE: A digital police magistrate image was obtained. During the uneventful, intravenous administration of contrast material, multislice data acquisition was obtained through the abdomen and pelvis. The data set was subsequently reconst ructed into multiplanar reformats. RADIATION DOSE: CTDI vol 7.31 mGy. DLP 414.89 mGy.cm Findings: Liver: Unremarkable. Spleen: Unremarkable. Pancreas: Unremarkable. Gallbladder: Unremarkable. Adrenals: Unremarkable Kidneys: Unremarkable. Pelvic Viscera: An intrauterine device is noted. 18 mm involuting right adnexal cyst/ follicle. Vasculature: Unremarkable. Retroperitoneum: Unremarkable. Bowel: No bowel obstruction. The appendix is normal. Musculoskeletal: Unremarkable. Soft tissues: Unremarkable Lungs: The lung bases are clear. Impression: 1. No acute abdominopelvic abnormality identified. 2. Incidental findings as detailed. Time of 1ST Reevaluation: 22:42 Reevaluation 1ST: Unchanged Patient Education/Counseling: Prognosis, Need For Follow Up Family Education/Counseling: No Family Present SEPSIS Sepsis Screen Date sepsis recognized/suspect: Jan 18, 2025 Time Sepsis recognized/suspect: 2149 Recent Procedure: No On Antibiotic Therapy: No Respiratory Rate >20: No Heart Rate >90: Yes Temp<36 C (96.8 F) or >38.3 C: No SBP <90 or MAP <65 mmHG: No New Acute Mental Status Change: No Is the patient on CPAP, BIPAP,: No Physician Orders Ct Ab Pel With Iv Con Only (01/18/25 22:47) Saline Lock (01/19/25 01:03) Pantoprazole (Protonix) (01/19/25 10:00) Allergies (01/19/25 04:23) Code Status (01/19/25 04:23) Sodium Chloride Lock (Saline Lock Ns) (01/19/25 06:00) Oxygen Per Hour (01/19/25 04:23) Hydrocodone-Acet 5/325mg Tab ([place] 5/32 (01/19/25 04:30) Ondansetron Hcl (Zofran) (01/19/25 04:30) Complete Blood Count (01/20/25 04:00) Comprehensive Metabolic Panel (01/20/25 04:00) Condition: Fair (01/19/25 04:23) Acetaminophen Tablet (Tylenol Tablet) (01/19/25 04:30) Clear Liq Diet (01/19/25 Breakfast) Bedrest With Bathroom Privileg (01/19/25 04:23) Morphine Sulfate Injection (01/19/25 04:30) Sequential Compression Device (01/19/25 ) Vital Signs Date Time Temp Pulse Resp B/P (MAP) Pulse Ox O2 Delivery O2 Flow Rate FiO2 01/19/25 01:09 86 16 99 Room Air* 0 21 01/19/25 01:09 78 16 121/74 (90) 99 01/18/25 22:03 98.0 92 16 133/79 (97) 97 98.0 Laboratory Tests Test 01/18/25 23:03 01/19/25 05:12 Lactic Acid Level 1.0 mmol/L (0.4-2.0) White Blood Count 10.9 10^3/uL (4.4-10.8) H 10.3 10^3/uL (4.4-10.8) Departure 1 Departure Time of Disposition: 02:20 Impression: Primary Impression: Intractable nausea and vomiting Additional Impression: Hematemesis Disposition: ADMITTED INPATIENT Condition: Stable Comments 34-year-old female with vomiting, hematemesis. Treatment initiated in the ED Patient admitted to hospitalist service for further treatment, evaluation and monitoring. Extensive evaluation was performed in attempt to identify or rule out: (See differential diagnosis section) The following tests were ordered, and results were reviewed by me and discussed with patient: (See diagnostic results section) Addressed an acute or chronic illness that poses a threat to life or bodily function: Suspected upper GI bleed Decision regarding hospitalization or escalation of hospital level of care: Risk and benefits of admission for further treatment of patient's condition was considered. Due to patient's current clinical condition, high risk of decline and poor outcome if discharged and need for further inpatient management and monitoring, patient will be admitted to the hospital. Drug therapy requiring intensive monitoring for toxicity: IV contrast Parenteral controlled substances: N/A Decision regarding elective major surgery with identified patient or procedure risk factors: N/A Decision regarding emergency major surgery: N/A Decision not to resuscitate or to de-escalate care because of poor prognosis: N/A Diagnosis or treatment significantly limited by social determinants of health: N/A Critical Care Note Critical Care Time?: No Stability Stability form required: No Heart Score Heart Score: Heart Score Response (Comments) Value History N/A 0 EKG N/A 0 Age N/A 0 Risk Factors N/A 0 Troponin N/A 0 Total 0 I personally scribed for MARLENI NGUYEN MD ([email or web address]) on 01/18/25 at 22:45. Electronically submitted by Ángel Leone ([email or web address]). I personally scribed for MARLENI NGUYEN MD ([email or web address]) on 01/19/25 at 02:35. Electronically submitted by Ángel Leone ([email or web address]). MARLENI NGUYEN MD Jan 18, 2025 22:45
[2025-01-18 23:15] LABS: Urine Protein, UAD TRACE (Negative)
[2025-01-18 23:18] LABS: Hematocrit 42.3 % (36.0-46.0); Hemoglobin 14.6 g/dL (12.2-16.2); Mean Corpuscular Hemoglobin 32.7 pg (28.0-32.0); Mean Corpuscular Volume 95.2 fL (80.0-100.0); Nucleated Red Blood Cells % 0.0 %
[2025-01-18 23:34] LABS: Alanine Aminotransferase 25 U/L (7-40); Albumin 4.7 g/dL (3.2-4.8); Alkaline Phosphatase 108 U/L (46-116); Anion Gap 8 (5-15); BUN/Creatinine Ratio 16.9 (10.0-20.0); Bilirubin, Total 0.4 mg/dL (0.2-1.0); Blood Urea Nitrogen 11 mg/dL (9-23); Calcium 9.3 mg/dL (8.7-10.4); Carbon Dioxide 26 mmol/L (20-31); Chloride 106 mmol/L (98-107); Glucose 98 mg/dL (74-106); Potassium 3.6 mmol/L (3.5-5.1); Sodium 140 mmol/L (136-145); Total Protein 7.4 g/dL (5.7-8.2)
[2025-01-19] VITALS (7 sets, daily range): BP systolic 106–123; BP diastolic 44–78; PULSE 57–86; RESP 16–20; TEMP 98.3–98.4; O2SAT 97–99
[2025-01-19] MEDS: ONDANSETRON HCL 4 MG/2 ML VIAL IV ONE (01:08)
[2025-01-19] MEDS: PANTOPRAZOLE 40 MG/10 ML VIAL INJ IV ONE (01:08)
[2025-01-19] MEDS: IOHEXOL 300 MG/ML 100ML BOTTLE IJ ONE (01:48)
--- NOTE | 2025-01-19 01:55 | DVH ---
Exam: CT CT AB PEL WITH IV CON ONLY History: Suspected upper GI bleed, abdominal pain Comparison Study: None TECHNIQUE: A digital light technician image was obtained. During the uneventful, intravenous administration of c ontrast material, multislice data acquisition was obtained through the abdomen and pelvis. The data s et was subsequently reconstructed into multiplanar reformats. RADIATION DOSE: CTDI vol 7.31 mGy. DLP 414.89 mGy.cm Findings: Liver: Unremarkable. Spleen: Unremarkable. Pancreas: Unremarkable. Gallbladder: Unremarkable. Adrenals: Unremarkable Kidneys: Unremarkable. Pelvic Viscera: An intrauterine device is noted. 18 mm involuting right adnexal cyst/ follicle. Vasculature: Unremarkable. Retroperitoneum: Unremarkable. Bowel: No bowel obstruction. The appendix is normal. Musculoskeletal: Unremarkable. Soft tissues: Unremarkable Lungs: The lung bases are clear. Impression: 1. No acute abdominopelvic abnormality identified. 2. Incidental findings as detailed.
[2025-01-19] MEDS ORDERED: ACETAMINOPHEN 325 MG TAB PO PRN (04:30)
[2025-01-19] MEDS ORDERED: HYDROcodone-ACET 5/325MG TAB PO PRN (04:30)
[2025-01-19] MEDS ORDERED: MORPHINE SULFATE INJ 2 MG/ml SYRG IV PRN ×2 (04:30→06:00)
[2025-01-19] MEDS: SODIUM CHLOR 0.9% PF (SALINE LOCK) 10ML VIAL/SYR IV SCH (05:36)
[2025-01-19 05:47] LABS: Hematocrit 41.4 % (36.0-46.0); Hemoglobin 14.1 g/dL (12.2-16.2); Mean Corpuscular Hemoglobin 32.4 pg (28.0-32.0); Mean Corpuscular Volume 94.8 fL (80.0-100.0); Nucleated Red Blood Cells % 0.0 %
[2025-01-19 05:49] LABS: Anion Gap 9 (5-15); Carbon Dioxide 27 mmol/L (20-31); Chloride 104 mmol/L (98-107); Potassium 3.5 mmol/L (3.5-5.1); Sodium 140 mmol/L (136-145)
[2025-01-19 05:50] LABS: Calcium 10.0 mg/dL (8.7-10.4)
--- NOTE | 2025-01-19 05:51 | DVHHP2 ---
History of Present Illness Reason for Visit: Intractable nausea and vomiting History of Present Illness The patient is a 34-year-old female with past medical history of ovarian cyst who presented to [facility] ED with complaint of abdominal pain. Patient reports she has been experiencing severe abdominal pain associated with intermittent episodes of nausea and vomiting for the past few months. Patient reports symptoms progressively get worse for the past 3 days with worsening nausea and vomiting, episodes of blood tangled vomitus, unable to keep anything down, getting worse today that prompted this visit. Patient was seen and evaluated in the ED, laboratory data shows WBC 10.9, platelets 322, sodium 140, potassium 3.6, BUN 11, creatinine 0.65, glucose 98, calcium 9.3, blood pressure 121/74, heart rate 78, temperature 98.0 F, O2 saturation 99% on room air. Abdomen/pelvis CT showed no acute abdominopelvic abnormality identified. Please see medication orders section in the computer. On my assessment, patient denied chest pain, no headache, no dizziness, no diaphoresis, denies , no abdominal pain, nausea or vomiting at this moment, no fever, no chills. Patient was admitted for further evaluation and medical management. Past Medical History Ovarian Cysts Past Surgical History Denies all surgeries Family History Reviewed, noncontributory to the management of this case. Past Social History The patient lives at home, denies smoking, alcohol or illicit drugs abuse. Review of Systems Constitutional: No: Fever, Chills, Sweats, Weakness, Malaise, Other Eyes: No: Pain, Vision change, Conjunctivae inflammation, Eyelid inflammation, Other, Redness ENT: No: Ear pain, Ear discharge, Nose pain, Nose discharge, Nose congestion, Mouth pain, Mouth swelling, Throat pain, Throat swelling, Other Respiratory: No: Cough, Dry, Shortness of breath, SOB with excertion, Wheezing, Hemoptysis, Pleuritic Pain, Sputum, Wheezing, Other Cardiovascular: No: Chest Pain, Palpitations, Orthopnea, Paroxysmal Noc. Dyspnea, Edema, Lt Headedness, Other Gastrointestinal: Nausea, Vomiting, Abdominal Pain; No: Diarrhea, Constipation, Melena, Hematochezia, Other Genitourinary: No Dysuria, No Frequency, No Incontinence, No Hematuria, No Retention, No Other Musculoskeletal: No: other, neck pain, shoulder pain, arm pain, back pain, hand pain, leg pain, foot pain Skin: No: Rash, Lesions, Jaundice, Bruising, Other Neurological: No: Weakness, Numbness, Incoordination, Change in speech, Confusion, Seizures, Other Allergies: Coded Allergies: NO KNOWN ALLERGIES (Unverified , 05/14/24) Medications Current Medications Medications Dose Ordered Sig/Jaime Route Start Time Stop Time Status Last Admin Dose Admin Pantoprazole Sodium 40 mg DAILY IV 01/19/25 10:00 Sodium Chloride 10 ml Q8HR IV 01/19/25 06:00 01/19/25 05:36 10 ML Acetaminophen/ Hydrocodone Bitart 1 tab Q4HP PRN PO 01/19/25 04:30 Ondansetron HCl 4 mg Q4HP PRN IV 01/19/25 04:30 Acetaminophen 650 mg Q6HP PRN PO 01/19/25 04:30 Morphine Sulfate 2 mg Q4HPRN PRN IV 01/19/25 04:30 Exam Vital Signs Vital Signs Date Time Temp Pulse Resp B/P (MAP) Pulse Ox O2 Delivery O2 Flow Rate FiO2 01/19/25 01:09 86 16 99 Room Air* 0 21 01/19/25 01:09 121/74 (90) 01/18/25 22:03 98.0 98.0 General Appearance: Alert, Oriented X3, Cooperative, No acute distress HEENT: Atraumatic, PERRLA, EOMI, Mucous membr. moist/pink Respiratory: Clear to auscultation, Normal air movement Cardiovascular: Regular rate, Normal S1, Normal S2, No murmurs Abdominal: Normal bowel sounds, Soft, No hepatospenomegaly, No masses, Other (Reports tenderness) Extremities: No clubbing, No cyanosis, No edema, Normal pulses, No tenderness/swelling Skin: No rashes, No breakdown, No significant lesion Neuro: Normal gait, Normal speech, Strength at 5/5 X4 ext, Normal tone, Sensation intact, Cranial nerves 3-12 NL, Reflexes 2+ Psych/Mental Status: Mental status NL, Mood NL Labs/Xrays Labs Test 01/19/25 05:12 01/18/25 23:03 01/18/25 22:00 Range/Units White Blood Count 10.3 4.4-10.8 10^3/uL Red Blood Count 4.37 4.0-5.20 10^6/uL Hemoglobin 14.1 12.2-16.2 g/dL Hematocrit 41.4 36.0-46.0 % Mean Corpuscular Volume 94.8 80.0-100.0 fL Mean Corpuscular Hemoglobin 32.4 H 28.0-32.0 pg Mean Corpuscular Hemoglobin Concent 34.1 32.0-36.0 g/dL Red Cell Distribution Width 12.9 11.8-14.3 % Platelet Count 317 140-450 10^3/uL Mean Platelet Volume 7.6 6.9-10.8 fL Neutrophils (%) (Auto) 61.6 37.0-80.0 % Lymphocytes (%) (Auto) 27.5 10.0-50.0 % Monocytes (%) (Auto) 8.9 0.0-12.0 % Eosinophils (%) (Auto) 1.5 0.0-7.0 % Basophils (%) (Auto) 0.5 0.0-2.0 % Neutrophils # (Auto) 6.3 1.6-8.6 10 ^3/uL Lymphocytes # (Auto) 2.8 0.4-5.4 10 ^3/uL Monocytes # (Auto) 0.9 0-1.3 10 ^3/uL Eosinophils # (Auto) 0.2 0-0.8 10 ^3/uL Basophils # (Auto) 0 0-0.2 10 ^3/uL Nucleated Red Blood Cells 0.0 % Lactic Acid Level 1.0 0.4-2.0 mmol/L Total Bilirubin 0.4 0.2-1.0 mg/dL Aspartate Amino Transferase (AST) 20 13-40 U/L Alanine Aminotransferase (ALT) 25 7-40 U/L Alkaline Phosphatase 108 46-116 U/L Total Protein 7.4 5.7-8.2 g/dL Albumin 4.7 3.2-4.8 g/dL Urine Color Yellow Yellow Urine Clarity Turbid H Clear Urine pH 5.5 5.0-9.0 Urine Specific [place] 1.033 1.001-1.035 Urine Protein Trace H Negative Urine Ketones Trace Negative Urine Blood Trace H Negative /uL Urine Nitrite Negative Negative Urine Bilirubin Negative Negative Urine Urobilinogen Normal Negative mg/dL Urine Leukocyte Esterase Negative Negative /uL Urine RBC 1 0 - 4 /hpf Urine Microscopic WBC 3 0-5 /HPF Urine Squamous Epithelial Cells Mod <5 /hpf Urine Calcium Oxalate Crystals Many None Seen Urine Bacteria None seen None Seen /hpf Urine Mucus Few None Seen Urine Glucose Normal Normal mg/dL Urine Test Negative Negative PATIENT: MORENO BALES AACCT: [id number] UNIT: [id number] : 1990 LOC: ER ROOM / BED: / AGE / SEX: 34 / F ADM STATUS: REG ER SERVICE [id number] ORDERING PHYSICIAN: MARLENI NGUYEN MD PROCEDURE(s): ABPLIV - CT AB PEL WITH IV CON ONLY REASON: Suspected upper GI bleed ORDER NUMBER(s): [id number], ACCESSION NUMBER(s): [id number] Exam: CT CT AB PEL WITH IV CON ONLY History: Suspected upper GI bleed, abdominal pain Comparison Study: None TECHNIQUE: A digital flume maker image was obtained. During the uneventful, intravenous administration of contrast material, multislice data acquisition was obtained through the abdomen and pelvis. The data set was subsequently reconstructed into multiplanar reformats. RADIATION DOSE: CTDI vol 7.31 mGy. DLP 414.89 mGy.cm Findings: Liver: Unremarkable. Spleen: Unremarkable. Pancreas: Unremarkable. Gallbladder: Unremarkable. Adrenals: Unremarkable Kidneys: Unremarkable. Pelvic Viscera: An intrauterine device is noted. 18 mm involuting right adnexal cyst/follicle. Vasculature: Unremarkable. Retroperitoneum: Unremarkable. Bowel: No bowel obstruction. The appendix is normal. Musculoskeletal: Unremarkable. Soft tissues: Unremarkable Lungs: The lung bases are clear. Impression: 1. No acute abdominopelvic abnormality identified. 2. Incidental findings as detailed. SEPSIS Sepsis Screen Date sepsis recognized/suspect: Jan 19, 2025 Time Sepsis recognized/suspect: 0111 Recent Procedure: No On Antibiotic Therapy: No Respiratory Rate >20: No Heart Rate >90: No Temp<36 C (96.8 F) or >38.3 C: No SBP <90 or MAP <65 mmHG: No New Acute Mental Status Change: No Is the patient on CPAP, BIPAP,: No Physician Orders Stool Occult Blood (01/18/25 22:47) Ct Ab Pel With Iv Con Only (01/18/25 22:47) Saline Lock (01/19/25 01:03) Pantoprazole (Protonix) (01/19/25 10:00) Basic Metabolic Panel (01/19/25 04:23) Allergies (01/19/25 04:23) Code Status (01/19/25 04:23) Sodium Chloride Lock (Saline Lock Ns) (01/19/25 06:00) Oxygen Per Hour (01/19/25 04:23) Hydrocodone-Acet 5/325mg Tab ([place] 5/32 (01/19/25 04:30) Ondansetron Hcl (Zofran) (01/19/25 04:30) Complete Blood Count (01/20/25 04:00) Comprehensive Metabolic Panel (01/20/25 04:00) Condition: Fair (01/19/25 04:23) Acetaminophen Tablet (Tylenol Tablet) (01/19/25 04:30) Clear Liq Diet (01/19/25 Breakfast) Bedrest With Bathroom Privileg (01/19/25 04:23) Morphine Sulfate Injection (01/19/25 04:30) Sequential Compression Device (01/19/25 ) Vital Signs Date Time Temp Pulse Resp B/P (MAP) Pulse Ox O2 Delivery O2 Flow Rate FiO2 01/19/25 01:09 86 16 99 Room Air* 0 21 01/19/25 01:09 78 16 121/74 (90) 99 01/18/25 22:03 98.0 92 16 133/79 (97) 97 98.0 Laboratory Tests Test 01/18/25 23:03 01/19/25 05:12 Lactic Acid Level 1.0 mmol/L (0.4-2.0) White Blood Count 10.9 10^3/uL (4.4-10.8) H 10.3 10^3/uL (4.4-10.8) Medications Medications Dose Ordered Sig/Jaime Route Start Time Stop Time Status Last Admin Dose Admin Ondansetron HCl 4 mg ONCE ONCE IV 01/18/25 23:00 01/18/25 23:01 DC 01/19/25 01:08 4 MG Pantoprazole Sodium 40 mg ONCE ONCE IV 01/18/25 23:00 01/18/25 23:01 DC 01/19/25 01:08 40 MG Sodium Chloride 10 ml Q8HR IV 01/19/25 06:00 01/19/25 05:36 10 ML Assessment/Plan Assessment/Plan Intractable nausea and vomiting Hematemesis Acute abdominal pain Plan 1. Admit to med surge unit 2. Breathing treatment 3. Pain control management 4. Management of fluids and electrolytes 5. Consultation for hospitalist 6. Diagnostic tests abdomen/pelvis CT 7. DVT prophylaxis on SCDs 8. Repeat labs CBC, CMP in a.m. 9. Continue with current medical management 10. Treatment plan discussed with patient and RN. Patient verbalized understanding. Plan discussed with: Patient, Other (RN) My Orders Orders - CLAUDETTE CARMICHAEL DNP Procedure Category Date Status Time Pantoprazole PHA 01/19/25 In Process (Protonix) 10:00 Basic Metabolic Panel LAB 01/19/25 In Process 04:23 Allergies CORAL 01/19/25 In Process 04:23 Code Status CODE 01/19/25 Transmitted 04:23 Sodium Chloride Lock PHA 01/19/25 In Process (Saline Lock Ns) 06:00 Oxygen Per Hour RT 01/19/25 Transmitted 04:23 Hydrocodone-Acet PHA 01/19/25 In Process 5/325mg Tab ([place] 04:30 Ondansetron Hcl PHA 01/19/25 In Process (Zofran) 04:30 Complete Blood Count LAB 01/20/25 Verified 04:00 Comprehensive LAB 01/20/25 Verified Metabolic Panel 04:00 Condition: Fair CORAL 01/19/25 In Process 04:23 Acetaminophen Tablet PHA 01/19/25 In Process (Tylenol Tablet) 04:30 Clear Liq Diet DIET 01/19/25 Transmitted Breakfast Bedrest With Bathroom CORAL 01/19/25 In Process Privileg 04:23 Morphine Sulfate PHA 01/19/25 In Process Injection 04:30 Sequential CORAL 01/19/25 In Process Compression Device Problem List: (1) Intractable nausea and vomiting (2) Hematemesis (3) Acute abdominal pain Date of Service: Jan 19, 2025 Billing Provider: CLAUDETTE CARMICHAEL DNP Common Visit Codes: [id number] INP/OBS CARE (HIGH) CLAUDETTE CARMICHAEL DNP Jan 19, 2025 05:51
[2025-01-19 05:55] LABS: BUN/Creatinine Ratio 11.8 (10.0-20.0); Blood Urea Nitrogen 9 mg/dL (9-23)
[2025-01-19] MEDS ORDERED: NITROGLYCERIN 0.4 MG SL TAB SL PRN (06:00)
[2025-01-19 06:11] LABS: Glucose 86 mg/dL (74-106)
[2025-01-19] MEDS: PANTOPRAZOLE 40 MG/10 ML VIAL INJ IV SCH (10:08)
--- NOTE | 2025-01-19 12:12 | DVHPNRES ---
Progress Note Date Seen: Jan 19, 2025 Resident Creating Document: LUZ KNOX RESIDENT Medical Necessity Reason Pt with a Central, PICC or Fol: No Subjective Review of Systems Cam Hurst, 34F presented to the ED with complain of intractable nausea, vomiting and abdominal pain. She reports having these complains for past one year. Since last four days she reports having intense nausea, vomiting and abdominal pain (5/10). Today in the morning, she had an episode of hemetemesis that prompted her visit to the emergency department. Last night she complained of sharp chest pain that was triggered by vomiting episode. She has a lower abdominal pain, which is cramp-like, intermittent. She also complains of diarrhea since 4 days. She has almost 4 episodes daily with loose-floating stools, foul smelling. No aggravating or relieving factors. She denies having burning micturition, fever, chills, per vaginal discharge. Her past history is significant for admission to [facility] for 5-6 days for nausea, vomiting. She was diagnosed with ovarian cyst and was advised to follow up outpatient. She reports losing all the documents and was unable to follow-up. She also reports blood in her urine from that time. CT abdomen shows no abdominal or pelvic abnormality. Patient was examined at bedside. She was tearful. Complaining abdominal pain 3 on 10 in intensity. Personal history: Sexually active with 2 partners, 5 pregnancies, 1 , wanted, 3 alive. Occasional alcohol use, nonsmoker and no recreational drug use. LMP 2 years ago. Last Pap smear normal. Past history: Anxiety, depression in the past. ROS: Constitutional: Denies weight loss, fever and chills. HEENT: Denies changes in vision and hearing. Respiratory: Denies shortness of breath and cough Cardiovascular: Complains of chest pain followed by vomiting episode. GI: Complains of lower abdominal pain, nausea, vomiting and diarrhea. : Denies dysuria and urinary frequency. Musculoskeletal: Denies myalgias and joint pain Skin: Denies rash and pruritus. Neurological: Denies dizziness, headache, vision or hearing problems Review of Systems: RESPIRATORY:Normal Objective vital signs Vital Sign Date Time Temp Pulse Resp B/P (MAP) Pulse Ox O2 Delivery O2 Flow Rate FiO2 01/19/25 08:21 98.3 59 18 115/68 (84) 97 98.3 01/19/25 07:31 Room Air* 0 21 medications Current Medications Medications Dose Ordered Sig/Jaime Route Start Time Stop Time Status Last Admin Dose Admin Pantoprazole Sodium 40 mg DAILY IV 01/19/25 10:00 01/19/25 10:08 40 MG Sodium Chloride 10 ml Q8HR IV 01/19/25 06:00 01/19/25 05:36 10 ML Acetaminophen/ Hydrocodone Bitart 1 tab Q4HP PRN PO 01/19/25 04:30 Ondansetron HCl 4 mg Q4HP PRN IV 01/19/25 04:30 Acetaminophen 650 mg Q6HP PRN PO 01/19/25 04:30 Morphine Sulfate 2 mg Q4HPRN PRN IV 01/19/25 04:30 Nitroglycerin 0.4 mg Q5MINP PRN SL 01/19/25 06:00 Morphine Sulfate 2 mg Q30M PRN IV 01/19/25 06:00 Examination General: Patient alert and oriented in person, place and time. Patient following commands. HEENT: Normocephalic, atraumatic, moist mucous membranes Respiratory/pulmonary: Clear lungs bilaterally, no associated crackles or wheezes. Cardiovascular: Normal heart sounds S1 and S2 with no associated murmurs Abdomen: Mild tenderness on palpation of hypogastrium. No palpable masses. Extremities: There is no peripheral edema present at the lower extremities. Peripheral Pulses: 3+ Radial (R). 3+ Radial (L). 3+ Dorsalis pedis (R). 3+ Dorsalis pedis(L) Skin: No rashes or pruritus, there is no sacral edema present at this time. Neurological: Intact cranial nerves with no focal neurologic deficits laboratory and microbiology Laboratory Tests 01/19/25 05:12 Test 01/19/25 05:12 Range/Units Serum Glucose 86 74-106 mg/dL Problem List/Assessment/Plan Problem List/Assessment/Plan #Pelvic Inflammatory Disease, rule out #STI, rule #IUD in place -US abdomen pelvis. -Testing for chlamydia, gonorrhea -Start IV doxycycline. #Ovarian cyst rupture, possible #Amenorrhea -Ultrasound from 05/15/2024 shows right ovarian hemorrhagic cyst 4.[address] scan from the same time shows right ovarian cyst 3.1 X 4.1 cm. IUD within the uterus. Urine analysis showed 1+ blood which was eventually resolved. -We will consult OBGYN. #Hematemesis, intractable nausea, vomiting, abdominal pain #Scarlet-Pan syndrome, possible #Acute gastroenteritis, possibly infectious -We will consult GI -We will test stool for ova/parasite -Pain management with acetaminophen, [place], morphine as needed -Continue Zofran. -Continue lactated ringer maintenance. -Start ampicillin sulbactam -Stool Occult blood- negative Goals of care discussions with patient at bedside, more than 35 minute spent. Code status: FULL Case discussed with Dr. Garcia Plan discussed with: Patient Date of Service: Jan 19, 2025 Billing Provider: NOEL UMAÑA MD Common Visit Codes: [id number] INP/OBS CARE(HIGH) LUZ KNOX RESIDENT Jan 19, 2025 12:12 NOEL UMAÑA MD Jan 20, 2025 01:20
[2025-01-19] MEDS: AMPICILLIN & SULBACTAM SODIUM 3 GM in SODIUM CHL 0.9% 100 ML IV SCH (13:30)
[2025-01-19] MEDS ORDERED: ONDANSETRON HCL 4 MG/2 ML VIAL IV PRN (13:30)
[2025-01-19] MEDS: LACTATED RINGER'S 1,000 ML IV SCH (13:30)
--- NOTE | 2025-01-19 14:00 | DVH ---
US PELVIS INDICATION: pelvic pain, previous hemorrhagic cyst TECHNIQUE: Multiple real-time grayscale transabdominal sonographic images along with color and duplex doppler of the uterus and ovaries were obtained. COMPARISON: US PELVIC on DOS: 05/15/24 FINDINGS: The uterus measures 7.1 X 5.1 X 5.4 cm. The endometrial stripe measures 7 mm. Intrauterine contraceptive device in place. The right ovary measures 3.7 X 1.8 X 2.6 cm. Interval resolution of right ovarian hemorrhagic cyst. 1 cm follicle noted in the right ovary The left ovary measures 3.1 X 1.7 X 2.3 cm. Subsequent color and duplex doppler interrogation of the ovaries demonstrated symmetric vascular flow to both ovaries, though this does not exclude the possibility of torsion due to the dual blood suppl y. IMPRESSION: 1. No acute findings in the pelvis. 2. Interval resolution of right ovarian hemorrhagic cyst. 3. Intrauterine contraceptive device in place.
[2025-01-19] MEDS: ONDANSETRON HCL 4 MG/2 ML VIAL IV PRN (14:24)
[2025-01-19] MEDS: DOXYCYCLINE 100MG/100ML 100 ML IV SCH (15:00)
[2025-01-20] VITALS (8 sets, daily range): BP systolic 114–120; BP diastolic 67–80; PULSE 50–74; RESP 16–20; TEMP 97.4–98.7; O2SAT 91–99
[2025-01-20 07:34] LABS: Hematocrit 38.2 % (36.0-46.0); Hemoglobin 13.2 g/dL (12.2-16.2); Mean Corpuscular Hemoglobin 32.7 pg (28.0-32.0); Mean Corpuscular Volume 94.6 fL (80.0-100.0); Nucleated Red Blood Cells % 0.1 %
[2025-01-20 07:48] LABS: Alanine Aminotransferase 21 U/L (7-40); Albumin 4.1 g/dL (3.2-4.8); Alkaline Phosphatase 83 U/L (46-116); Anion Gap 8 (5-15); BUN/Creatinine Ratio 9.6 (10.0-20.0); Bilirubin, Total 0.7 mg/dL (0.2-1.0); Calcium 9.7 mg/dL (8.7-10.4); Carbon Dioxide 26 mmol/L (20-31); Chloride 106 mmol/L (98-107); Glucose 86 mg/dL (74-106); Potassium 3.7 mmol/L (3.5-5.1); Sodium 140 mmol/L (136-145); Total Protein 6.6 g/dL (5.7-8.2)
[2025-01-20 07:52] LABS: Blood Urea Nitrogen 7 mg/dL (9-23)
[2025-01-20 08:40] LABS: Cannabinoid Screen, Urine Pos (NEGATIVE)
[2025-01-20 08:42] LABS: Amphetamine Screen, Urine Neg (NEGATIVE); Barbiturate Scree,Urine Neg (NEGATIVE); Benzodiazephine Screen, Urine Neg (NEGATIVE); Cocaine Screen, Urine Neg (NEGATIVE); Opiate Scree,Urine Neg (NEGATIVE); Phencyclidine Screen, Urine Neg (NEGATIVE)
[2025-01-20] MEDS: METOCLOPRAMIDE HCL 5MG/ml INJ 2ml VIAL IV ONE (14:56)
--- NOTE | 2025-01-20 15:23 | DVHPNRES ---
Progress Note Date Seen: Jan 20, 2025 Resident Creating Document: LUZ KNOX RESIDENT Medical Necessity Reason Pt with a Central, PICC or Fol: No Subjective Review of Systems Cam Hurst, 34F presented to the ED with complain of intractable nausea, vomiting and abdominal pain. She reports having these complains for past one year. Since last four days she reports having intense nausea, vomiting and abdominal pain (5/10). Today in the morning, she had an episode of hemetemesis that prompted her visit to the emergency department. Last night she complained of sharp chest pain that was triggered by vomiting episode. She has a lower abdominal pain, which is cramp-like, intermittent. She also complains of diarrhea since 4 days. She has almost 4 episodes daily with loose-floating stools, foul smelling. No aggravating or relieving factors. She denies having burning micturition, fever, chills, per vaginal discharge. Her past history is significant for admission to [facility] for 5-6 days for nausea, vomiting. She was diagnosed with ovarian cyst and was advised to follow up outpatient. She reports losing all the documents and was unable to follow-up. She also reports blood in her urine from that time. CT abdomen shows no abdominal or pelvic abnormality. Patient was examined at bedside. She was tearful. Complaining abdominal pain 3 on 10 in intensity. 01/20/25: Patient seen and examined at bedside today. She complains of some pain at the IV site, will try cold pack. Her nausea, vomiting and abdominal pain has improved now. US shows no acute findings, her right ovarian cyst has resolved now & IUD is in place. Personal history: Sexually active with 2 partners, 5 pregnancies, 1 , wanted, 3 alive. Occasional alcohol use, nonsmoker and no recreational drug use. LMP 2 years ago. Last Pap smear normal. Past history: Anxiety, depression in the past. ROS: Constitutional: Denies weight loss, fever and chills. HEENT: Denies changes in vision and hearing. Respiratory: Denies shortness of breath and cough Cardiovascular: Complains of chest pain followed by vomiting episode. GI: Complains of lower abdominal pain, nausea, vomiting and diarrhea. : Denies dysuria and urinary frequency. Musculoskeletal: Denies myalgias and joint pain Skin: Denies rash and pruritus. Neurological: Denies dizziness, headache, vision or hearing problems Objective vital signs Vital Sign Date Time Temp Pulse Resp B/P (MAP) Pulse Ox O2 Delivery O2 Flow Rate FiO2 01/20/25 13:11 98.2 65 18 116/80 (92) 99 98.2 01/20/25 08:14 Room Air* 0 21 Total Intake and Output 01/19/25 01/19/25 01/20/25 15:00 23:00 07:00 Intake Total 640 ml 900 ml Balance 640 ml 900 ml medications Current Medications Medications Dose Ordered Sig/Jaime Route Start Time Stop Time Status Last Admin Dose Admin Pantoprazole Sodium 40 mg DAILY IV 01/19/25 10:00 01/20/25 09:39 40 MG Sodium Chloride 10 ml Q8HR IV 01/19/25 06:00 01/20/25 14:07 10 ML Acetaminophen/ Hydrocodone Bitart 1 tab Q4HP PRN PO 01/19/25 04:30 Ondansetron HCl 4 mg Q4HP PRN IV 01/19/25 04:30 01/19/25 14:41 4 MG Acetaminophen 650 mg Q6HP PRN PO 01/19/25 04:30 Morphine Sulfate 2 mg Q4HPRN PRN IV 01/19/25 04:30 Ondansetron HCl 4 mg Q4HPRN PRN IV 01/19/25 13:30 Lactated Ringer's 1,000 ml @ 75 mls/hr [id number] IV 01/19/25 13:30 01/19/25 13:30 75 MLS/HR Ampicillin Sodium/ Sulbactam Sodium 3 gm/Sodium Chloride 100 ml @ 100 mls/hr Q6H IV 01/19/25 13:30 01/20/25 14:56 100 MLS/HR Doxycycline Hyclate 100 ml @ 50 mls/hr Q12H IV 01/19/25 15:00 01/20/25 02:51 50 MLS/HR Examination General: Patient alert and oriented in person, place and time. Patient following commands. HEENT: Normocephalic, atraumatic, moist mucous membranes Respiratory/pulmonary: Clear lungs bilaterally, no associated crackles or wheezes. Cardiovascular: Normal heart sounds S1 and S2 with no associated murmurs Abdomen: Mild tenderness on palpation of hypogastrium. No palpable masses. Extremities: There is no peripheral edema present at the lower extremities. Peripheral Pulses: 3+ Radial (R). 3+ Radial (L). 3+ Dorsalis pedis (R). 3+ Dorsalis pedis(L) Skin: No rashes or pruritus, there is no sacral edema present at this time. Neurological: Intact cranial nerves with no focal neurologic deficits laboratory and microbiology Laboratory Tests 01/20/25 07:04 Test 01/20/25 07:04 Range/Units Serum Glucose 86 74-106 mg/dL Problem List/Assessment/Plan Problem List/Assessment/Plan #Pelvic Inflammatory Disease, rule out #STI, rule #IUD in place -US abdomen pelvis. -Testing for chlamydia, gonorrhea -Continues IV doxycycline. #Ovarian cyst rupture, possible #Amenorrhea -Ultrasound from 05/15/2024 shows right ovarian hemorrhagic cyst 4.[address] scan from the same time shows right ovarian cyst 3.1 X 4.1 cm. IUD within the uterus. Urine analysis showed 1+ blood which was eventually resolved. -US done yesterday shows resolution of the right ovarian cyst. IUD in place. No other abnormality detected on US. -We will consult OBGYN O/P. #Hematemesis, intractable nausea, vomiting, abdominal pain #Scarlet-Pan syndrome, possible #Acute gastroenteritis, possibly infectious #Peptic ulcer disease, possible -We will test stool for ova/parasite -Pain management with acetaminophen, [place], morphine as needed -Continue Zofran. -Continue lactated ringer maintenance. -Start ampicillin sulbactam -Stool Occult blood- negative #Cannabinoid hyperemesis syndrome -Tox screen positive for cannabis use. Goals of care discussions with patient at bedside, more than 35 minute spent. Code status: FULL Case discussed with Dr. Garcia Plan discussed with: Patient My Orders My Orders Orders - LUZ KNOX RESIDENT Procedure Category Date Status Time Soft Diet DIET 01/20/25 Transmitted Lunch LUZ KNOX RESIDENT Jan 20, 2025 15:23
[2025-01-21 01:00] VITALS: BP 117/74; PULSE 75; RESP 20; TEMP 97.6; O2SAT 99
[2025-01-21 05:00] VITALS: BP 130/82; PULSE 57; RESP 20; TEMP 98; O2SAT 99
--- NOTE | 2025-01-21 07:03 | DVHDSRES ---
Discharge Summary Date of Admission Resident Creating Document: LUZ KNOX RESIDENT Jan 19, 2025 at 05:50 Date of Discharge: Jan 21, 2025 Admitting Diagnosis Intractable nausea, vomiting, abdominal pain, possible Acute Gastroenteritis possibly infectious Labs/Diagnostic Data: Laboratory Results Test 01/20/25 08:00 01/20/25 07:04 01/19/25 10:28 01/18/25 23:03 Urine Opiates Screen Neg (NEGATIVE) Urine Fentanyl Screen Neg (NEGATIVE) Urine Barbiturates Screen Neg (NEGATIVE) Urine Phencyclidine Screen Neg (NEGATIVE) Urine Amphetamines Screen Neg (NEGATIVE) Urine Benzodiazepines Screen Neg (NEGATIVE) Urine Cocaine Screen Neg (NEGATIVE) Urine Cannabinoids Screen Pos (NEGATIVE) White Blood Count 8.0 10^3/uL (4.4-10.8) Red Blood Count 4.03 10^6/uL (4.0-5.20) Hemoglobin 13.2 g/dL (12.2-16.2) Hematocrit 38.2 % (36.0-46.0) Mean Corpuscular Volume 94.6 fL (80.0-100.0) Mean Corpuscular Hemoglobin 32.7 pg (28.0-32.0) Mean Corpuscular Hemoglobin Concent 34.5 g/dL (32.0-36.0) Red Cell Distribution Width 12.9 % (11.8-14.3) Platelet Count 272 10^3/uL (140-450) Mean Platelet Volume 7.9 fL (6.9-10.8) Neutrophils (%) (Auto) 58.1 % (37.0-80.0) Lymphocytes (%) (Auto) 30.9 % (10.0-50.0) Monocytes (%) (Auto) 9.1 % (0.0-12.0) Eosinophils (%) (Auto) 1.5 % (0.0-7.0) Basophils (%) (Auto) 0.4 % (0.0-2.0) Neutrophils # (Auto) 4.7 10 ^3/uL (1.6-8.6) Lymphocytes # (Auto) 2.5 10 ^3/uL (0.4-5.4) Monocytes # (Auto) 0.7 10 ^3/uL (0-1.3) Eosinophils # (Auto) 0.1 10 ^3/uL (0-0.8) Basophils # (Auto) 0 10 ^3/uL (0-0.2) Nucleated Red Blood Cells 0.1 % Sodium Level 140 mmol/L (136-145) Potassium Level 3.7 mmol/L (3.5-5.1) Chloride Level 106 mmol/L (98-107) Carbon Dioxide Level 26 mmol/L (20-31) Anion Gap 8 (5-15) Blood Urea Nitrogen 7 mg/dL (9-23) Creatinine 0.73 mg/dL (0.550-1.02) Glomerular Filtration Rate Calc 111 mL/min (>90) BUN/Creatinine Ratio 9.6 (10.0-20.0) Serum Glucose 86 mg/dL (74-106) Calcium Level 9.7 mg/dL (8.7-10.4) Total Bilirubin 0.7 mg/dL (0.2-1.0) Aspartate Amino Transferase (AST) 17 U/L (13-40) Alanine Aminotransferase (ALT) 21 U/L (7-40) Alkaline Phosphatase 83 U/L (46-116) Total Protein 6.6 g/dL (5.7-8.2) Albumin 4.1 g/dL (3.2-4.8) Stool Occult Blood Negative (Negative) Stool Occult Blood Sample #3 (Negative) Lactic Acid Level 1.0 mmol/L (0.4-2.0) Test 01/18/25 22:00 Urine Color Yellow (Yellow) Urine Clarity Turbid (Clear) Urine pH 5.5 (5.0-9.0) Urine Specific [place] 1.033 (1.001-1.035) Urine Protein Trace (Negative) Urine Ketones Trace (Negative) Urine Blood Trace /uL (Negative) Urine Nitrite Negative (Negative) Urine Bilirubin Negative (Negative) Urine Urobilinogen Normal mg/dL (Negative) Urine Leukocyte Esterase Negative /uL (Negative) Urine RBC 1 /hpf (0 - 4) Urine Microscopic WBC 3 /HPF (0-5) Urine Squamous Epithelial Cells Mod /hpf (<5) Urine Calcium Oxalate Crystals Many (None Seen) Urine Bacteria None seen /hpf (None Seen) Urine Mucus Few (None Seen) Urine Glucose Normal mg/dL (Normal) Urine Test Negative (Negative) Other Laboratory Tests 01/20/25 07:04 Brief Hx & Hospital Course: Cam Hurst, 34F presented to the ED with complaints of intractable nausea, vomiting and abdominal pain. She had similar symptoms for past one year, and had worsening nausea, vomiting and abdominal pain (5/10) in the last week. She had an episode of hemetemesis that prompted her visit to the emergency department. She also complained of sharp chest pain that was triggered by vomiting episode. She has a lower abdominal pain, which is cramp-like, intermittent. She also complains of diarrhea since 4 days, with consistency of loose-floating stools, foul smelling. No aggravating or relieving factors. She denies having burning micturition, fever, chills, vaginal discharge. Her past history is significant for admission to [facility] for 5-6 days for nausea, vomiting. She was diagnosed with ovarian cyst and was advised to follow up outpatient. She reports losing all the documents and was unable to follow-up. On examination there was tenderness on palpation in the hypogastric area. A CT scan was done showing no abdominal or pelvic pathology. She was tested negative for occult blood. She was started her on antiemetics, IV ampicillin-sulbactam, fluid maintenance. Her pain was managed with acetaminophen, [place] and morphine as needed. An ultrasound was obtained to evaluate the ovarian cyst, the right ovarian cyst which was 4.9 cm on 05/15/2024 has been resolved. We ordered testing for chlamydia and gonorrhea and started IV doxycycline. Her toxicology screen was positive for cannabinoids. Her condition subsequently improved. She was discharged to home with oral Augmentin and will follow-up in discharge clinic after 1 week. Discharge Plan: Please take Augmentin 875 mg twice daily for 5 days Please take Reglan 10 mg daily as needed for 10 days. Please take Pantoprazole 40 mg once daily for 1 month. Please follow-up in discharge clinic in 1 week. Please follow-up with OBGYN outpatient. Operations or Procedures US PELVIS INDICATION: pelvic pain, previous hemorrhagic cyst TECHNIQUE: Multiple real-time grayscale transabdominal sonographic images along with color and duplex doppler of the uterus and ovaries were obtained. COMPARISON: US PELVIC on DOS: 05/15/24 FINDINGS: The uterus measures 7.1 X 5.1 X 5.4 cm. The endometrial stripe measures 7 mm. Intrauterine contraceptive device in place. The right ovary measures 3.7 X 1.8 X 2.6 cm. Interval resolution of right ovarian hemorrhagic cyst. 1 cm follicle noted in the right ovary The left ovary measures 3.1 X 1.7 X 2.3 cm. Subsequent color and duplex doppler interrogation of the ovaries demonstrated symmetric vascular flow to both ovaries, though this does not exclude the possibility of torsion due to the dual blood supply. IMPRESSION: 1. No acute findings in the pelvis. 2. Interval resolution of right ovarian hemorrhagic cyst. 3. Intrauterine contraceptive device in place. ---- CT CT AB PEL WITH IV CON ONLY History: Suspected upper GI bleed, abdominal pain Comparison Study: None TECHNIQUE: A digital adjunct professor of english image was obtained. During the uneventful, intravenous administration of contrast material, multislice data acquisition was obtained through the abdomen and pelvis. The data set was subsequently reconstructed into multiplanar reformats. RADIATION DOSE: CTDI vol 7.31 mGy. DLP 414.89 mGy.cm Findings: Pelvic Viscera: An intrauterine device is noted. 18 mm involuting right adnexal cyst/ follicle. Bowel: No bowel obstruction. The appendix is normal. Lungs: The lung bases are clear. Impression: 1. No acute abdominopelvic abnormality identified. 2. Incidental findings as detailed. Condition at Discharge: Stable Final Diagnosis/Problems List Pelvic Inflammatory Disease, possible STI, rule out IUD in place Ovarian cyst rupture, ruled out Amenorrhea Hematemesis, intractable nausea, vomiting, abdominal pain Scarlet-Pan syndrome, possible Acute gastroenteritis, possibly infectious Peptic ulcer disease, possible Cannabinoid hyperemesis syndrome, possible Discharge Disposition: Home Discharge Instruct/Medications Diet: Regular Activity: No Restrictions, As Tolerated Follow Up/Referral: Please follow-up in discharge clinic in 1 week. Please follow-up with OBGYN outpatient. Medications: Please take Augmentin 875 mg twice daily for 5 days Please take Reglan 10 mg daily as needed for 10 days. Please take Pantoprazole 40 mg once daily for 1 month. New Medications: Amoxicillin & Pot Clavulanate (Augmentin Tablet) 875 Mg Tb 875 MG PO BID for 5 Days, #10 TAB Metoclopramide Hcl (Reglan) 10 Mg Tab 10 MG PO DAILY PRN for 10 Days, #10 TAB Pantoprazole Sodium Sesquihydr (Pantoprazole Sodium) 40 Mg Tab 40 MG PO DAILY for 30 Days, #30 TAB Care Plan: Discharge Plan: Please take Augmentin 875 mg twice daily for 5 days Please take Reglan 10 mg daily as needed for 10 days. Please take Pantoprazole 40 mg once daily for 1 month. Please follow-up in discharge clinic in 1 week. Please follow-up with OBGYN outpatient. Scheduled Amoxicillin & Pot Clavulanate (Augmentin Tablet), 875 MG PO BID Cephalexin Monohydrate (Cephalexin), 500 MG PO Q6HR, (Reported) Pantoprazole Sodium Sesquihydr (Pantoprazole Sodium), 40 MG PO DAILY Scheduled PRN Metoclopramide Hcl (Reglan), 10 MG PO DAILY PRN Miscellaneous Medications Ondansetron Odt 4MG Tab (Zofran Po), 4 MG PO, (Reported) Discharge Statement: "Patient was advised to return to the ER or call 911 if any headaches, dizziness, shortness of breath, chest pain, abdominal pain, bleeding, fevers, or worsening of medical condition. Patient was counseled about treatment plan, medications, possible side effects, patientverbalized understanding. All questions were answered to the best of my ability. This discharge took greater then 30 minutes in planning, reviewing documentation, counseling the patient, and discussing with other team members." ASSESSMENT ASSESSMENT Assessment Pelvic Inflammatory Disease, possible STI, rule out IUD in place Ovarian cyst rupture, ruled out Amenorrhea Hematemesis, intractable nausea, vomiting, abdominal pain Scarlet-Pan syndrome, possible Acute gastroenteritis, possibly infectious Peptic ulcer disease, possible Cannabinoid hyperemesis syndrome LUZ KNXO RESIDENT Jan 21, 2025 07:03
[2025-01-21] MEDS ORDERED: METO-281 PO (08:14)
[2025-01-21] MEDS ORDERED: PANT40T PO (08:14)
[2025-01-21] MEDS ORDERED: AUG875T PO (08:14)
[2025-01-21 09:00] VITALS: BP 108/65; PULSE 91; RESP 14; TEMP 98.5; O2SAT 98
[2025-01-21 18:07] LABS: Chlamydia Trachomatis, NAA Negative (Negative); Neisseria gonorrhoeae, NAA Negative (Negative)
== END 2025-01-21 10:19 | disposition home or self-care (01) | DRG 531 ==
LOC: ER 21:40 → OVERFLOW 01-19 05:50 → WEST WING 01-19 11:06
PROVIDERS: ADMIT Student in an Organized Health Care Education/Training Program; ATTEND Emergency Medicine
DX: N73.9 Female pelvic inflammatory disease, unspecified (principal); K22.6 Gastro-esophageal laceration-hemorrhage syndrome; A09 Infectious gastroenteritis and colitis, unspecified; K27.9 Peptic ulcer, site unspecified, unspecified as acute or chronic, without hemorrhage or perforation; N91.2 Amenorrhea, unspecified; A64 Unspecified sexually transmitted disease; Z97.5 Presence of (intrauterine) contraceptive device
CPT/HCPCS: 36415; 74177; 76856; 80048; 80053; 80307; 81001; 81025; 82270; 83605; 85025; 96374; 96375; G0378; J2405; J2470

== ENCOUNTER 2025-03-25 15:18 | Emergency (ER) | payer MEDICAID ==
[~2025-03-25] VITALS: Ht 167.6 cm; Wt 66.9 kg
[~2025-03-25 15:18] MED LIST changes: +AUG875T PO; +METO-281 PO; +PANT40T PO
--- NOTE | 2025-03-25 15:43 | ED.PDOC ---
[employer] HPI Comments 34y F who presents to the ED for chief complaint of foreign body. Pt states she was at urgent care for vaginal bleeding. Pt states she had scan which showed pt IUD has been dislodged and urgent care physician was not able to feel anything and told to come ED for further evaluation. Pt states IUD placed 2 years ago. Pt has associated cramping but otherwise denies any other symptoms. Chief Complaint: Foreign Body Time Seen by MD: 16:05 Reviewed Notes: Medications, Allergies Allergies: Coded Allergies: NO KNOWN ALLERGIES (Unverified , 05/14/24) Home Meds Active Scripts Metoclopramide Hcl (Reglan) 10 Mg Tab, 10 MG PO DAILY PRN for 10 Days, #10 TAB Prov:GHASSAN LUGO RESIDENT 01/21/25 Pantoprazole Sodium Sesquihydr (Pantoprazole Sodium) 40 Mg Tab, 40 MG PO DAILY for 30 Days, #30 TAB Prov:GHASSAN LUGO RESIDENT 01/21/25 Amoxicillin & Pot Clavulanate (AUGMENTIN TABLET) 875 Mg Tb, 875 MG PO BID for 5 Days, #10 TAB Prov:GHASSAN LUGO RESIDENT 01/21/25 Reported Medications Ondansetron Odt 4MG Tab (ZOFRAN PO) 4 Mg Tb, 4 MG PO, TAB ODT TAB-DISSOLVE IN MOUTH, THEN SWALLOW 05/14/24 Cephalexin Monohydrate (Cephalexin) 500 Mg Cap, 500 MG PO Q6HR, MG 05/14/24 Information Source: Patient Mode of Arrival: Ambulatory Brought in by: self Timing: Days Prehospital treatment: None Severity: Moderate Vaginal Discharge: None Vaginal Lesions: None Bleeding Quality: Bright Red Vaginal Mass: None Onset Of Mass/Bleeding: Spontaneous Sexual Activity: Neither Last Consensual [place]: Days Control: None Blood Type: Unknown Symptoms of Possible : None Associated Signs and Symptoms: Vaginal Bleeding, Abdominal Pain Past Medical History PAST MEDICAL HISTORY: Denies Surgical History (Other): ovarian cyst removal [employer] OFF[employer]ER History: Ovarian Cysts Family History Family History: Family hx of DM Social History Smoker: Non-Smoker Alcohol: Occasionally Drugs: Marijuana Lives In: Home Constitutional: denies: chills, diaphoresis, fatigue, fever, malaise, sweats, weakness, others EENTM: denies: blurred vision, double vision, ear bleeding, ear discharge, ear drainage, ear pain, ear ringing, eye pain, eye redness, hearing loss, mouth pain, mouth swelling, nasal discharge, nose bleeding, nose congestion, nose pain, photophobia, tearing, throat pain, throat swelling, voice changes, others Respiratory: denies: cough, hemoptysis, orthopnea, SOB at rest, shortness of breath, SOB with excertion, stridor, wheezing, others Cardiovascular: denies: chest pain, dizzy spells, diaphoresis, Dyspnea on exertion, edema, irregular heart beat, left arm pain, lightheadedness, palpitations, PND, syncope, others Gastrointestinal: reports: abdominal pain; denies: abdomen distended, blood streaked bowels, constipated, diarrhea, dysphagia, difficulty swallowing, hematemesis, melena, nausea, poor appetite, poor fluid intake, rectal bleeding, rectal pain, vomiting, others Genitourinary: reports: abnormal vagina bleeding; denies: burning, dyspareunia, dysuria, flank pain, frequency, hematuria, incontinence, pain, , vagina discharge, urgency, others Neurological: denies: dizziness, fainting, headache, left sided numbness, left sided weakness, numbness, paresthesia, pre-existing deficit, right sided numbness, right sided weakness, seizure, speech problems, tingling, tremors, weakness, others Musculoskeletal: denies: back pain, gout, joint pain, joint swelling, muscle pain, muscle stiffness, neck pain, others Integumetry: denies: bruises, change in color, change in hair/nails, dryness, laceration, lesions, lumps, rash, wounds, others Allergic/Immunocompromised: denies: Difficulty Healing, Frequent Infections, Hives, Itching, others Hematologic/Lymphatic: denies: anemia, blood clots, easy bleeding, easy bruising, swollen glands, others Endocrine: denies: excessive hunger, excessive sweating, excessive thirst, excessive urination, flushing, intolerance to cold, intolerance to heat, unexplained weight gain, unexplained weight loss, others Psychiatric: denies: anxiety, bipolar disorder, depression, hopeless, panic disorder, schizophrenia, sleepless, suicidal, others All Other Systems: Reviewed and Negative Physical Exam General Appearance: No Apparent Distress HEENT: Normal ENT Inspection, Pharynx Normal, TMs Normal Neck: Full Range of Motion, Non-Tender, Normal, Normal Inspection Respiratory: Chest Non-Tender, Lungs Clear, No Accessory Muscle Use, No Respiratory Distress, Normal Breath Sounds Cardiovascular: No Edema, No JVD, No Murmur, No Gallop, Normal Peripheral Pulses, Regular Rate/Rhythm Breast Exam: Deferred Gastrointestinal: No Organomegaly, Non Tender, No Pulsatile Mass, Normal Bowel Sounds, Soft Genitalia: Deferred Pelvic: Deferred Rectal: Deferred Extremities: No calf tenderness, Normal capillary refill, Normal inspection, Normal range of motion, Non-tender, No pedal edema Musculoskeletal : Apperance: Normal Neurologic: Alert, internet researcher II-XII nml as Tested, No Motor Deficits, Normal Affect, Normal Mood, No Sensory Deficits Cerebellar Function: Normal Reflexes: Normal Skin: Dry, Normal Color, Warm Lymphatic: No Adenopathy Was a procedure done? 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) Vaginal Bleeding: Blood Loss Anemia, Cervicitis, PID, UTI, Vaginitis Vaginal Discharge: Foreign Body, Physiologic Discharge X-Ray, Labs, Meds, VS Vital Signs Date Time Temp Pulse Resp B/P (MAP) Pulse Ox O2 Delivery O2 Flow Rate FiO2 03/25/25 15:21 98.3 114 16 131/81 95 98.3 Lab Test 03/25/25 15:48 Range/Units White Blood Count 9.8 4.4-10.8 10^3/uL Red Blood Count 4.32 4.0-5.20 10^6/uL Hemoglobin 14.3 12.2-16.2 g/dL Hematocrit 41.7 36.0-46.0 % Mean Corpuscular Volume 96.5 80.0-100.0 fL Mean Corpuscular Hemoglobin 33.2 H 28.0-32.0 pg Mean Corpuscular Hemoglobin Concent 34.4 32.0-36.0 g/dL Red Cell Distribution Width 13.5 11.8-14.3 % Platelet Count 359 140-450 10^3/uL Mean Platelet Volume 7.6 6.9-10.8 fL Neutrophils (%) (Auto) 70.4 37.0-80.0 % Lymphocytes (%) (Auto) 20.9 10.0-50.0 % Monocytes (%) (Auto) 7.2 0.0-12.0 % Eosinophils (%) (Auto) 0.9 0.0-7.0 % Basophils (%) (Auto) 0.6 0.0-2.0 % Neutrophils # (Auto) 6.9 1.6-8.6 10 ^3/uL Lymphocytes # (Auto) 2.0 0.4-5.4 10 ^3/uL Monocytes # (Auto) 0.7 0-1.3 10 ^3/uL Eosinophils # (Auto) 0.1 0-0.8 10 ^3/uL Basophils # (Auto) 0.1 0-0.2 10 ^3/uL Nucleated Red Blood Cells 0.0 % Pelvic ultrasound shows: IMPRESSION: 1. Grossly unremarkable pelvic ultrasound. 2. IUD noted in the endometrial canal. 3. Small left ovarian follicle. The CBC is within normal limits The patient is being discharged on the patient will follow up with the primary care doctor The patient will return to the emergency department the condition worsens Images Reviewed?: Images reviewed and evaluated by me Time of 1ST Reevaluation: 16:35 Reevaluation 1ST: Unchanged Patient Education/Counseling: Diagnosis, Treatment, Prognosis, Need For Follow Up Family Education/Counseling: No Family Present Departure 1 Departure Time of Disposition: 17:49 Impression: Primary Impression: IUD (intrauterine device) in place Disposition: 01 HOME / SELF CARE / HOMELESS Condition: Fair Discharged With: Self Critical Care Note Critical Care Time?: No Stability Stability form required: No Heart Score Heart Score: Heart Score Response (Comments) Value History N/A 0 EKG N/A 0 Age N/A 0 Risk Factors N/A 0 Troponin N/A 0 Total 0 I personally scribed for MATTIE BYRNES MD ([email or web address]) on 03/25/25 at 15:43. Electronically submitted by Aminta Ochoa ([email or web address]). I personally scribed for MATTIE BYRNES MD ([email or web address]) on 03/25/25 at 15:53. Electronically submitted by Aminta Ochoa ([email or web address]). I personally scribed for MATTIE BYRNES MD ([email or web address]) on 03/25/25 at 16:10. Electronically submitted by Aminta Ochoa ([facility] [employer]). MATTIE BYRNES MD Mar 25, 2025 15:43
[2025-03-25 16:09] LABS: Hematocrit 41.7 % (36.0-46.0); Hemoglobin 14.3 g/dL (12.2-16.2); Mean Corpuscular Hemoglobin 33.2 pg (28.0-32.0); Mean Corpuscular Volume 96.5 fL (80.0-100.0); Nucleated Red Blood Cells % 0.0 %
--- NOTE | 2025-03-25 17:09 | DVH ---
INDICATION: pain TECHNIQUE: Multiple real-time grayscale transabdominal sonographic images along with color and duplex Doppler of the uterus and ovaries were obtained. COMPARISON: US PELVIC on DOS: 01/19/25, US PELVIC on DOS: 05/15/24, US TRANSVAGINAL US NON OB on DOS: 1 07/15/23 FINDINGS: The uterus measures 7.34 x 5.63 x 4.74 cm. The endometrial stripe measures 5.3 mm. IUD note d in the endometrial canal. The right ovary measures 2.3 x 1.54 x 2.34 cm. Volume of the right ovary is 4.34 cc The left ovary measures 3.51 x 2.09 x 1.95 cm. Volume of the left ovary is 7.52 cc. There is an anec hoic mass in the left ovary measuring 0.49 x 0.46 0.42 cm consistent with a follicle. Subsequent color and duplex Doppler interrogation of the ovaries demonstrated symmetric vascular flow to both ovaries, though this does not exclude the possibility of torsion due to the dual blood suppl y. IMPRESSION: 1. Grossly unremarkable pelvic ultrasound. 2. IUD noted in the endometrial canal. 3. Small left ovarian follicle.
[2025-03-25 18:10] VITALS: BP 117/69; PULSE 76; RESP 18; TEMP 97.9; O2SAT 98
== END 2025-03-25 18:35 | disposition home or self-care (01) ==
LOC: ER 15:18
DX: Z97.5 Presence of (intrauterine) contraceptive device (principal); F12.90 Cannabis use, unspecified, uncomplicated; Z98.890 Other specified postprocedural states; Z79.899 Other long term (current) drug therapy
CPT/HCPCS: 36415; 76830; 76856; 85025